=== PATIENT | female | born 1985 | race Caucasian/White ===

== ENCOUNTER 2021-01-14 15:45 | Inpatient (IN) | payer BC, SELFPAY ==
[2021-01-14] VITALS (14 sets, daily range): BP systolic 103–135; BP diastolic 61–85; PULSE 94–112; TEMP 36.4–36.9; BMI 38.0
[2021-01-14 16:41] LABS: Basophils Percent Auto 0.3 % (0.2-1.2); Eosinophils Percent Auto 0.4 % (0-4.4); Hematocrit 31.9 % (37.0-47.0); Hemoglobin 10.2 g/dL (12.0-15.0); Immature Granulocyte Absolute 0.08 K/mm3 (0.00-0.031); Immature Granulocyte Percent A 0.7 % (0-0.5); Lymphocytes Absolute Auto 2.13 K/mm3 (0.9-3.2); Lymphocytes Percent Auto 18.9 % (18.3-44.2); Mean Corpuscular Hemoglobin 25.3 pg (26-34); Mean Corpuscular Volume 79.2 fl (80-100); Mean Platelet Volume 10.1 fl (7.4-10.4); Monocytes Percent Auto 8.5 % (2.6-8.5); Neutrophils Percent Auto 71.2 % (45.5-73.1); Platelet Count Result 302 k/mm3 (150-375); Red Blood Count 4.03 M/mm3 (4.2-5.4); Red Cell Distribution Width 14.6 % (11.5-14.5); White Blood Count 11.3 K/mm3 (4.5-10.0)
[2021-01-14] MEDS: DINOPROSTONE 10 MG VAG INSERT VAGINAL (17:31)
--- NOTE | 2021-01-14 17:45 | LDADM ---
This patient, Evon Moody, was admitted to Labor/Delivery/Recovery 103 on 01/14/21 at 15:45. Plans for labor, pain management and were discussed with patient. Patient/family oriented to hospital policies and general routines including ID bracelet, bed and alarms, visiting hours, pain management, procedures, bathroom and other care routines, personal items, smoking policy, room service/diet and guest tray routines, infant security routines, and visiting hours. Patient/Family are encouraged to report perceived risks to care and to ask questions if they do not understand what they are told or what they should do. See OBIX for further documentation.
[2021-01-14] MEDS: LACTATED RINGERS 1,000 ML 125 ML IV CONT (20:49)
[2021-01-14] MEDS: fentaNYL CITRATE INJ (*CRX) 100 MCG/2 ML VIAL 50 MCG IV PUSH (22:37)
[2021-01-15] VITALS (221 sets, daily range): BP systolic 74–190; BP diastolic 35–157; PULSE 60–164; RESP 15; TEMP 35.9–37.7; O2SAT 94–100
--- NOTE | 2021-01-15 00:31 | P.PNAN_ITS ---
Anes - Eval Pre Procedure Procedure: Labor epidural Date/Time: 01/15/21 00:31 Surgeon: Tiara Preop Diagnosis: Abd pain with contractions Pre Op Diagnosis: IOL Patient Data Age: 35 Gender: F Height: 5 ft 6 in Weight: 106.8 kg Last Vital Signs Temp 98.5 F 01/14/21 22:45 Pulse 96 01/14/21 22:44 BP 121/61 01/14/21 22:44 Allergies Allergy/AdvReac Type Severity Reaction Status Date / Time codeine AdvReac Vomiting Verified 12/27/20 16:07 Home Medications Medication Instructions Recorded Confirmed Type PNV cmb#95-ferrous fumarate-FA 1 tablet PO DAILY 12/27/20 12/27/20 History [] lansoprazole [Prevacid] 30 mg PO DAILY 12/27/20 12/27/20 History Laboratory Tests 01/14/21 01/14/21 01/14/21 16:36 16:36 16:36 WBC 11.3 K/mm3 H K/mm3 (4.5-10.0) RBC 4.03 M/mm3 L M/mm3 (4.2-5.4) Hgb 10.2 g/dL L g/dL (12.0-15.0) Hct 31.9 % L % (37.0-47.0) MCV 79.2 fl L fl (80-100) MCH 25.3 pg L pg (26-34) MCHC 32.0 g/dl g/dl (32-36) RDW 14.6 % H % (11.5-14.5) Plt Count 302 k/mm3 k/mm3 (150-375) MPV 10.1 fl fl (7.4-10.4) Immature Gran % (Auto) 0.7 % H % (0-0.5) Neut % (Auto) 71.2 % % (45.5-73.1) Lymph % (Auto) 18.9 % % (18.3-44.2) [place] % (Auto) 8.5 % % (2.6-8.5) Eos % (Auto) 0.4 % % (0-4.4) Baso % (Auto) 0.3 % % (0.2-1.2) Lymph # (Auto) 2.13 K/mm3 K/mm3 (0.9-3.2) [place] # (Auto) 1.0 K/mm3 H K/mm3 (0.1-0.6) Eos # (Auto) 0.0 K/mm3 K/mm3 (0-0.3) Baso # (Auto) 0.0 K/mm3 K/mm3 (0.0-0.1) Abs Immat Gran (auto) 0.08 K/mm3 H K/mm3 (0.00-0.031) Absolute Neuts (auto) 8.0 K/mm3 H K/mm3 (1.3-6.7) Absolute Nucleated RBC 0.0 K/mm3 K/mm3 (0.0-0.012) Nucleated RBC % 0.0 % % (0.0-0.2) RPR Pending Blood Type B Positive Antibody Screen Negative Patient hx anesthesia problems: none Family hx anesthesia problems: none PMFSH Past Medical History Medical History Anxiety Obesity and not yet delivered Family History Family History Other No pertinent family history Social History Social History Smoking status: Never smoker Substance use: never Gender identity (if verbalized by the patient): Female Spiritual care concerns: No Exam Day of Procedure 01/15/21 00:31 Patient weight: obese Airway: Mallampati scale class III Neurological: alert and oriented
[2021-01-15] MEDS: LACTATED RINGERS 1,000 ML 125 ML IV CONT ×2 (01:05→04:22)
[2021-01-15] MEDS: OXYTOCIN 30 UNITS/NS 500 ML 30 UNITS/500 ML BAG 6 UNITS IV CONT (07:02)
--- NOTE | 2021-01-15 07:18 | P.HP_ITS ---
Obstetrics - Admit Note Admission Note: record reviewed. No pertinent additions to the history and/or any subsequent changes in the physical findings that are not consistent with the expected course of the were found. MIL, polyhydramnios, Both parents +CF carriers. EFW 89%, sve 3-4/80/-2, arom Large amount of clear odorl ess fluid Additions to the history and/or subsequent changes in the physical findings follow. None.
[2021-01-15 09:27] LABS: Rapid Plasma Reagin Non-Reactive (NonReactive)
[2021-01-15] MEDS: ONDANSETRON INJ 4 MG/2 ML VIAL IV PUSH (10:38)
[2021-01-15] MEDS: miSOPROStol 200 MCG TABLET 1000 MCG (16:50)
--- NOTE | 2021-01-15 16:58 | P.PCNOB_ITS ---
OB - Delivery Note Procedure Delivery date: 01/15/21 Procedure: vaginal delivery events: Polyhydramnios Intrapartal events: None Induction method: AROM, per pitocin protocol and per cervidil protocol Delivery monitor: external FHT, external uterine and internal uterine Route of delivery: Laceration Description: Labial (bilateral) Delivery repair: vicryl Specimen: Yes Quantitative Blood Loss (ml): 312 Anesthesia type: Epidural Disposition: floor [place] Baby Date of : 01/15/21 Time of : 16:30 Weeks of gestation at delivery: 39 gender: Female Weight (pounds): 8 Weight (ounces): 5 presentation: vertex position: Left Occiput Anterior Placenta delivery description: Spontaneous cord vessel description: 3 Vessels, Tight, Around Body x1 and Delayed Cord Clamping score one minute: 8 score five minutes: 9 Narrative: blood oozing from suture sight, vag packing placed, cytotec placed after fundus was boggy right after delivery, mother and baby skin to skin and in stable condition upon my departure
[2021-01-15] MEDS: OXYTOCIN 30 UNITS/NS 500 ML 30 UNITS/500 ML BAG 125 UNITS IV CONT (17:00)
[2021-01-15] MEDS: WITCH HAZEL 40 PADS 1 PAD TOPICAL (17:17)
[2021-01-15] MEDS: BENZOCAINE 20% AER SPR (*SP) 56 GM CAN 1 SPRAY TOPICAL (17:17)
[2021-01-15] MEDS: IBUPROFEN 600 MG TABLET PO (17:18)
--- NOTE | 2021-01-15 19:20 | OBPPTRN ---
Patient transferred to post room #291 via wheelchair - still down in nursery for bath. Support person present. Oriented to unit, room, information board, rooming in, admission packet and security measures. Patient verbalizes understanding.
[2021-01-16 04:15] VITALS: BP 122/69; PULSE 96; RESP 18; TEMP 36.9
[2021-01-16] MEDS: ACETAMINOPHEN 325 MG TABLET 650 MG PO ×2 (04:20→11:10)
[2021-01-16 06:01] LABS: Hematocrit 25.9 % (37.0-47.0); Hemoglobin 8.2 g/dL (12.0-15.0)
[2021-01-16 07:50] VITALS: BP 119/64; PULSE 88; RESP 16; TEMP 36.7; O2SAT 100
--- NOTE | 2021-01-16 07:59 | PM.OBPNVD ---
OB - PN: Subj Subjective Date/time seen: 01/16/21 07:59 Patient comments: no complaints baby status: doing well OB - PN: Obj Data Labs CBC & Chem 7: 01/16/21 04:17 Labs: Laboratory Results - last 24 hr 01/14/21 01/16/21 16:36 04:17 Hgb 8.2 L Hct 25.9 L RPR Non-reactive OB - PN A/P Plan day: 1 Plan: routine care Time Spent With Patient Time: Total time spent is greater than 50% in coordination of care (as documented) at patient's floor/unit and/or counseling patient: Time with patient: less than 15 minutes Review of Systems Review of Systems: All systems reviewed & are unremarkable except as noted in HPI and below Exam Narrative: Exam Narrative: Fundus firm and vaginal flow controlled. No lower ext redness, warmth, or edema. Negative homans. Const: General: comfortable Chest: Breast/axilla inspection: normal inspection of the breasts Resp: Effort & Inspection: normal respiratory effort Cardio: Rate: regular rate GI: GI Palp: Yes Soft to palpation Psych: Appearance: grossly normal Affect: normal affect Attitude: cooperative Thought content: Yes Normal thought content present Judgement: Good judgement present (Psych)
[2021-01-16] MEDS: DOCUSATE SODIUM 100 MG CAPSULE PO ×2 (08:52→16:02)
[2021-01-16] MEDS: IBUPROFEN 600 MG TABLET PO ×3 (08:52→21:33)
[2021-01-16] MEDS: POLYSACCHARIDE IRON COMPLEX 150 MG CAPSULE PO ×2 (08:52→16:03)
[2021-01-16] MEDS: MULTIVIT/MIN/PREN/FOL AC/IRON TABLET 1 TAB PO (08:52)
--- NOTE | 2021-01-16 08:57 | WPDANLDPN2 ---
Anes-Prog Note L&D Date/Time: 01/16/21 08:57 Comfortable throughout: labor and delivery Neuraxial method: epidural Epidural/Spinal procedure site: clean & non-tender Neuro status: Neuro function grossly intact. Cardiovascular status: normal Respiratory status: normal Airway patency: baseline Mental status: baseline Post-Op hydration status: normal Vital Signs: Last Vital Signs Temp 36.9 C 01/16/21 04:15 Pulse 96 01/16/21 04:15 Resp 18 01/16/21 04:15 BP 122/69 01/16/21 04:15 Pulse Ox 99 01/15/21 14:57 Pain score (VAS): 3 I/O: Intake & Output 01/15/21 01/16/21 01/16/21 23:59 07:59 15:59 Intake Total 1500 Output Total 535 Balance 965 Post-procedural complaints: none Patient feedback: Patient satisfied with anesthetic care.
--- NOTE | 2021-01-16 09:50 | PC.NURSE ---
Mother called out for assist with feeding. Mother reports infant has been sleepy with some difficulties/discomfort with latching. Reviewed feeding cues, frequencies, duration of feedings, feeding elimination flow sheet, and signs of adequate intake. Demonstrated stimulation techniques to wake infant for feeding. Assisted with infant to breast. Reviewed positioning/alignment in football, holding breast in ?C? hold and guided asymmetrical latch on. Several attempts before infant able to latch correctly. Infant nursed eagerly, with steady draws and frequent swallowing noted. Reviewed signs of a correct latch, effective nursing and suck swallow ratio. was able to maintain latch without discomfort to mother. would slip to shallow latch, mother reports tenderness. Demonstrated how to adjust latch more deeply while feeding. Mother reports she can feel change in latch and has no tenderness. Suggested mother stimulate while feeding to increase stimulate, increase intake and to assist with maintaining deep latch. Nipple care reviewed of lanolin after feedings, warm compresses as needed. Instructed mother to call out for RN assistance if she is unable to latch infant for feeding or she has discomfort with nursing. Instructed feeding should be initiated three hours from start of last feeding or if feeding cues are noted before. Mother voiced understanding of information shared.
[2021-01-16 12:42] VITALS: BP 108/55; PULSE 92; RESP 16; TEMP 36.3; O2SAT 98
[2021-01-16 19:00] VITALS: BP 119/67; PULSE 98; RESP 18; RESP 20; TEMP 36.8; O2SAT 98
[2021-01-17] MEDS: IBUPROFEN 600 MG TABLET PO ×2 (05:33→11:36)
--- NOTE | 2021-01-17 07:00 | PC.NURSE ---
PT introductions made and plan of care discussed per post , pain management, breast feeding, daily care activities and pending discharge to home. PT will received discharge and education instructions per one to one discussion, mom baby care guide and demonstration. PT and spouse both recipients of such instructions and no barriers to learning identified. PT verbalized understanding of such care.
--- NOTE | 2021-01-17 07:17 | PM.OBPNVD ---
OB - PN: Subj Subjective Date/time seen: 01/17/21 07:17 Patient comments: no complaints baby status: doing well OB - PN: Obj Data Labs CBC & Chem 7: 01/16/21 04:17 OB - PN A/P Plan day: 2 Plan: routine care and discharge home Time Spent With Patient Time: Total time spent is greater than 50% in coordination of care (as documented) at patient's floor/unit and/or counseling patient: Exam Const: General: cooperative Nutritional Appearance: average body habitus Psych: Affect: normal affect Attitude: cooperative Thought process: Normal thought process present Thought content: Yes Normal thought content present Insight: Good insight present (Psych) Judgement: Good judgement present (Psych)
--- NOTE | 2021-01-17 08:30 | PC.NURSE ---
Mother has decided to formula feed. Reviewed engorgement/relief. Mother has no further questions at this time.
[2021-01-17 09:00] VITALS: BP 93/58; PULSE 99; RESP 16; TEMP 36.6; O2SAT 98
[2021-01-17] MEDS: ACETAMINOPHEN 325 MG TABLET 650 MG PO (11:26)
[2021-01-17] MEDS: POLYSACCHARIDE IRON COMPLEX 150 MG CAPSULE PO (11:27)
[2021-01-17] MEDS: DOCUSATE SODIUM 100 MG CAPSULE PO (11:27)
[2021-01-17] MEDS: MULTIVIT/MIN/PREN/FOL AC/IRON TABLET 1 TAB PO (11:27)
--- NOTE | 2021-01-17 14:30 | PC.NURSE ---
PT received discharge instructions per protocol and verbalized understanding
--- NOTE | 2021-01-17 15:00 | PC.NURSE ---
PT discharged to home ambulatory accompanied by spouse and and taken to waiting car. Follow up appts confirmed
[2021-01-18 09:49] VITALS: BP 136/80; PULSE 85; RESP 20; TEMP 37; O2SAT 100
--- NOTE | 2021-01-19 07:47 | PM.OBDSVD ---
DS: Admitting Diagnosis Admitting Diagnosis Admitting Diagnosis: [facility] OB - DS: Summary OB Procedures : None OB Procedures Intrapartum: Spontaneous Vag Delivery OB Procedures: : None Time Spent with Patient Time attestation: Total time spent providing and/or coordinating discharge services: DS: Data Data Completed and Pending Pending studies at discharge: Pending at discharge 01/15/21 17:31 Surgical [PTH] Routine Discharge Plan Discharge Attending physician on discharge: Katy Curry Consulting providers: Linette Menjivar ; Shirin Watts Discharging Clinician: Linette Menjivar Patient Disposition: Home, Self-Care Activity: pelvic rest Diet: regular Discharge Instructions: Education: Mom and Baby Guide Given to: Mother Follow-Up: Call your delivering provider's office for an appointment to be seen in: 4 Weeks Mom and baby should come to the [facility] for the follow-up appointment. Appointment Date/Time: January 18, 2021 at 9:00 am What to expect at your follow-up visit: Blood Pressure Check Call [phone] if you are unable to keep your appointment time. BREAST CARE: * Wear a snug supportive bra. * For engorgement discomfort: Breast Feeding: * Apply warm moist washcloths * Express milk as needed to relieve engorgement * Wear loose clothing Bottle Feeding: * May apply ice packs * For sore nipples: * Identify correct latch-on * Apply warm moist washcloths before and after nursing * Air dry nipples after nursing * May apply Lansinoh cream to nipples PERINEAL CARE: * Until bleeding stops, use your dandre bottle after urinating * Change your pad frequently throughout the day * You may take sitz baths several times a day (fill your bathtub with warm water and soak for 20 minutes.) Do NOT bathe in the water * No tub baths until seen by your physician - You may shower ACTIVITY: * Rest as much as possible. * Do not exercise or lift anything heavier than your baby (such as laundry or other children.) * Avoid stairs or driving as much as possible. * Do not put anything into the vagina. No douching, tampons, or sexual activity until seen by physician. NOTIFY PHYSICIAN IF YOU HAVE ANY QUESTIONS OR IF ANY OF THE FOLLOWING SYMPTOMS OCCUR: * If your perineum becomes red, swollen, or more painful than what you have experienced in the hospital. * If your vaginal bleeding becomes foul smelling. * If your vaginal bleeding becomes more heavy than a period or if your bleeding changes from pink to bright red. However, you may pass an occasional walnut-sized clot once or twice for the first week . * If you experience a sharp, shooting pain in you calves. * If you discover a hard, reddened area on your breast or if you experience flu-like symptoms. * If you have a fever of 100.4 or greater DIET: * Eat regular, well-balanced meals. * Drink plenty of fluids daily. If , drink to thirst. Patient Instructions: Antibiotic Form Stand Alone Forms: General Discharge Information Follow-up/Referrals: Linette Menjivar CNM [Certified Nurse Urology Physician Assistant] - Discharge Medications: Continued lansoprazole [Prevacid] 30 mg Capsule,Delayed Release(Dr/Ec) 30 mg PO DAILY RF: 0 PNV cmb#95-ferrous fumarate-FA [] 28 mg iron- 800 mcg Tablet 1 tablet PO DAILY RF: 0 Date of admission: 01/14/21 15:45 Primary Care Provider: PHYSICIAN NOT ON STAFF,NONSTAFF Admitting Provider: Katy Curry Attending physician on admission: Katy Curry Condition: Stable
== END 2021-01-17 15:00 | disposition home or self-care (01) | DRG 807 ==
LOC: ANHLDR 15:47 → ANHOB2 01-15 20:01
PROVIDERS: Advanced Practice Midwife; Admitting Provider Obstetrics & Gynecology; Visit Provider Obstetrics & Gynecology
DX: O40.3XX0 Polyhydramnios, third trimester, not applicable or unspecified (principal); Z37.0 Single live birth; Z3A.39 39 weeks gestation of pregnancy; O69.2XX0 Labor and delivery complicated by other cord entanglement, with compression, not applicable or unspecified; O70.0 First degree perineal laceration during delivery; K21.9 Gastro-esophageal reflux disease without esophagitis; O99.62 Diseases of the digestive system complicating childbirth; O99.344 Other mental disorders complicating childbirth; F41.9 Anxiety disorder, unspecified; O99.02 Anemia complicating childbirth; D64.9 Anemia, unspecified
CPT/HCPCS: 36415; 85014; 85018; 85025; 86592; 86850; 86900; 86901; 88307; A9270; J0131; J2405; J2590; J3010; J7120

== ENCOUNTER 2023-02-14 08:39 | Outpatient (CLI) | payer OTHER, SELFPAY | END 2023-02-14 08:40 | disposition home or self-care (01) | LOC: ANHLAB 08:44 | PROVIDERS: PCP Family Medicine; Visit Provider Advanced Practice Midwife | DX: N91.2 Amenorrhea, unspecified (principal) | CPT/HCPCS: 36415; 84702 ==

== ENCOUNTER 2023-04-16 12:13 | Outpatient (CLI) | payer OTHER, SELFPAY ==
--- NOTE | ~2023-04-16 | MMUS_ITS ---
EXAMINATION: MM diagnostic rey BI w radha, US breast LT limited HISTORY: Upper outer quadrant left breast lump TECHNIQUE: Bilateral full field ML, MLO and CC and spot left MLO and CC 3-D tomosynthesis images were performed and synthetic 2-D images were generated. CAD analysis was submitted and interpreted. High resolution upper outer quadrant left breast ultrasound was performed. COMPARISON: None BREAST PARENCHYMAL COMPOSITION: The breasts are extremely dense, which lowers the sensitivity of mamm ography. FINDINGS: MAMMOGRAPHIC FINDINGS: No suspicious mass or architectural distortion, malignant calcification, skin thickening or retractio n is detected. ULTRASOUND: 12:00 1 cm from nipple: Circumscribed hypoechoic solid lesion measuring approximately 1.4 x 1.3 x 1 c m, likely a benign fibroadenoma. No suspicious mass or shadowing is detected in the upper-outer quadrant of left breast otherwise. IMPRESSION: 1. Probable benign fibroadenoma, upper outer quadrant of left breast, not corresponding to the area o f clinical complaint; no mammographic or sonographic evidence of malignancy is detected 2. Routine mammographic screening beginning at age 40 is recommended BI-RADS Category 2: Benign finding(s). Reviewed, dictated and finalized at location A. IMPRESSION: 1. Probable benign fibroadenoma, upper outer quadrant of left breast, not corre sponding to the area of clinical complaint; no mammographic or sonographic evid ence of malignancy is detected 2. Routine mammographic screening beginning at age 40 is recommended BI-RADS Category 2: Benign finding(s).
== END 2023-04-16 12:14 | disposition home or self-care (01) ==
LOC: ANHIMG 12:15
PROVIDERS: PCP Family Medicine; Visit Provider Advanced Practice Midwife
DX: N63.21 Unspecified lump in the left breast, upper outer quadrant (principal)
CPT/HCPCS: 76642; 77062; 77066; G0279

== ENCOUNTER 2024-08-11 08:47 | Emergency (ER) | payer OTHER, SELFPAY ==
[2024-08-11 09:00] VITALS: BP 138/90; PULSE 104; RESP 16; TEMP 36.8; O2SAT 99
--- NOTE | 2024-08-11 09:38 | ED_ITS ---
HPI - URI/Sore Throat General Chief Complaint: Upper Respiratory Infection Stated Complaint: Sinus Infection Symptoms Time Seen by Provider: 08/11/24 09:17 Source: patient and RN notes reviewed Mode of arrival: ambulatory Limitations: no limitations History of Present Illness HPI Narrative: Patient presents today complaining of 6 day history of sore throat, nasal congestion, cough, chest congestion. Denies shortness of breath or fever. States she feels some slight wheezing when she lays down in bed. Prior to onset of symptoms patient was at a convention with lots of people. She has tried Robitussin, Mucinex, and ibuprofen with mild relief. No history of asthma or COPD. She is a nonsmoker. Related Data Home Medications ?Medication ?Instructions ?Recorded ?Confirmed ?Last Taken ?Type lansoprazole 30 mg capsule,delayed 30 mg PO DAILY 12/27/20 12/27/20 Unknown History release (Prevacid) Allergies Allergy/AdvReac Type Severity Reaction Status Date / Time codeine AdvReac Vomiting Verified 08/11/24 09:18 Review of Systems Review of Systems: CONSTITUTIONAL: Denies body aches, fever, chills, or sweats. EYES: Denies visual changes, redness, or discharge. ENT: Denies rhinorrhea, or otalgia.+ congestion, sore throat CARDIOVASCULAR: Denies chest pain, palpitations, or edema. RESPIRATORY: Denies dyspnea.+ cough, chest congestion GASTROINTESTINAL: Denies abdominal pain, nausea, vomiting, or diarrhea. GENITOURINARY: Denies dysuria or hematuria. SKIN: Denies rash, itching, or wounds. MUSCULOSKELETAL: Denies back pain, joint pain, or myalgia. NEUROLOGIC: Denies headache, numbness, tingling, or weakness. PSYCH: Denies depression or anxiety. [facility] Past Medical History Medical History Obesity and not yet delivered Anxiety Family History Family History Other No pertinent family history Social History Social History Smoking status: Never smoker Substance use: never Gender identity (if verbalized by the patient): Female Spiritual care concerns: No Comments At time of signature, I have reviewed and agree with nursing past medical, surgical, social and family history unless otherwise noted. Please see nursing chart for further information. There is no relevant family history pertinent to the presenting complaint Exam Narrative: GENERAL: Mildly ill-appearing, well-nourished, and in no acute distress. HEAD: Normocephalic, atraumatic. EYES: EOMI. No redness or drainage. Conjunctivae normal. ENT: Mucous membranes pink and moist. Nares mildly congested. No rhinorrhea. TMs normal bilaterally. Throat normal. Uvula midline. NECK: Normal AROM. Supple. No lymphadenopathy. CHEST: No respiratory distress. Clear to auscultation. HEART: Regular rate and rhythm. No murmur appreciated. EXTREMITIES: Normal range of motion. No edema. SKIN: Warm, dry, no rash. Capillary refill normal. Normal skin turgor. NEURO: No focal deficits. Alert and oriented x3. Gait steady. PSYCH: Normal affect. No signs of depression or anxiety. Course Course Level of Care: Express Care Visit Vital Signs Vital signs: Vital Signs Temperature 98.2 F 08/11/24 09:00 Pulse Rate 104 H 08/11/24 09:00 Respiratory Rate 16 08/11/24 09:00 Blood Pressure 138/90 08/11/24 09:00 Pulse Oximetry 99 08/11/24 09:00 Temperature 98.2 F 08/11/24 09:00 Pulse Rate 104 H 08/11/24 09:00 Respiratory Rate 16 08/11/24 09:00 Blood Pressure 138/90 08/11/24 09:00 Pulse Oximetry 99 08/11/24 09:00 Oxygen Delivery Room Air 08/11/24 09:20 Reviewed MDM - URI/Sore Throat MDM Narrative Medical decision making narrative: Symptoms likely viral in etiology. Discussed [id number] medication use and duration of illness. Patient will be treated for her symptoms with prednisone and Tessalon Perles. Anticipatory guidance given. ED precautions given. Differential Diagnosis Differential diagnosis: Likely upper respiratory infection, sinusitis, viral infection and bronchitis Critical Care Time Critical Care Time Critical Care Time: No Discharge Plan Discharge Clinical Impression: Upper respiratory infection Qualifiers: URI type: unspecified URI Qualified Code(s): J06.9 - Acute upper respiratory infection, unspecified Patient Disposition: Home, Self-Care Condition: Stable Instructions: Upper Respiratory Infection (DC) Additional Instructions: Your symptoms are likely due to a viral illness, which is not treated with antibiotics. Virus symptoms can last for up to 7-14 days. Take Tylenol or ibuprofen for pain or fever. Consider starting Sudafed and Flonase. Take the prednisone and Tessalon Perles as prescribed. Rest and stay hydrated. Follow up with your PCP in 7 days if symptoms are not improving. Go to the ER immediately if you develop shortness of breath, difficulty swallowing, or any other concerning symptoms. Your blood pressure was elevated above 120/80 today at Urgent Care. This puts you above the threshold for follow up. Please schedule a followup visit with your personal physician as soon as possible, for further evaluation and treatment. Even blood pressure exceeding 120/80 may indicate pre-hypertension. Patient Language: Faroese Prescriptions: New benzonatate 200 mg capsule 200 mg PO TID PRN (Reason: cough) Qty: 20 0RF prednisone 20 mg tablet 40 mg PO DAILY 5 Days Qty: 10 0RF No Action lansoprazole [Prevacid] 30 mg Capsule,Delayed Release(Dr/Ec) 30 mg PO DAILY Follow-up/Referrals: PHYSICIAN,[employer]EL[employer] [Primary Care Provider] - Time of Disposition: 09:42
== END 2024-08-11 09:44 | disposition home or self-care (01) ==
PROVIDERS: Emergency Provider Nurse Practitioner
DX: J06.9 Acute upper respiratory infection, unspecified (principal); E66.9 Obesity, unspecified; Z68.35 Body mass index [BMI] 35.0-35.9, adult
CPT/HCPCS: 99213; G0463

== ENCOUNTER 2024-10-18 03:22 | Day surgery (SDC) | payer OTHER, SELFPAY ==
[2024-10-11 10:13] VITALS: BMI 35.6
--- NOTE | 2024-10-11 10:21 | PC.NURSE ---
Report to the Outpatient Waiting Room, entrance under the green pavilion located off [facility], at time _1000_ on date _[id number]_. Planned Procedure Time: _1200_.? Time changes happen often and if your time is changed the preop area will call you the afternoon before. - You and your visitor will be asked to self-screen and do not enter if you have any COVID symptoms. Please call surgeon if you need to reschedule. - A mask is optional within the hospital at this time. Patients may have clear liquids (water, carbonated beverages, clear teas, apple juice) until 3 hours prior to surgery with a maximum of 20 ounces. - No food from midnight until time of surgery and no smoking, or chewing tobacco (or any form of nicotine). No chewing gum, candy or mints. Take only the following medications with a SIP of water on the morning of surgery: __Thyroid medication and control medicine. (Patient to bring these day of surgery so they can be added to med list.)____ DO NOT STOP ANY OF YOUR OTHER PRESCRIPTION MEDICATIONS PRIOR TO SURGERY EXCEPT THE FOLLOWING Hold all vitamins and supplements for 3 days per anesthesiologist. Medications to discontinue per physician Date to take last dose Please no make-up, nail sami, hairspray, perfume, deodorant, or body powder the day of surgery.? No jewelry (including any body piercings) or valuables the day of surgery, leave them at home.? Please take a shower or bath the night before, or the morning of, surgery with an antibacterial soap.? Wear comfortable, loose fitting clothing.? - Jewelry must be removed prior to entering the operating room.? Rings and piercings that are not removed may be cut off. - The hospital will not accept responsibility for valuables.? - Please leave all valuables, including medications, at home the day of surgery. If you are going home after surgery, a licensed race car driver must drive you home.? - NO public transportation without another adult if you receive anesthesia. - We recommend that an adult stay with you for 24 hours following discharge. - We also recommend that you do not drive, make important decision, drink alcoholic beverages, or take any drugs that were not prescribed by your health care provider for at least 24 hours after your discharge time. Follow any additional instructions given to you from your surgeon. Telephone instructions given to __Heather__and asked if any additional questions and then verbalized understanding. Patient advised to call surgeon office or pre surgery nurse liaison [phone] if any additional questions.
[2024-10-18] VITALS (12 sets, daily range): BP systolic 104–140; BP diastolic 53–76; PULSE 78–97; RESP 11–16; TEMP 36.2–37.2; O2SAT 94–100
--- OUTSIDE RECORDS SUMMARY | 2024-10-18 03:25 | XMS_ITS | Data Portability ---
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 Patient will come back in a year unless there are new symptoms. Take Calcium with Vitamin D 1200mg daily if not receiving in daily diet. It is strongly advised to have an annual flu shot and up can obtain at most pharmacies. If you have not had a TDap shot in the last 10 years you should obtain one as well. Discussed with patient & provided with information regarding Gardisil vaccine to prevent the 4 strains for HPV that cause cervical cancer if under age 26. Encourage safe sexual practices, to use condoms and limit partners if not already in a monogamous relationship. Do monthly self breast exams. Have mammogram yearly or every other year depending on family history. BRCA testing is now available for patients with strong genetic history of female cancer. If interested contact the office. Engage in daily exercise of low impact aerobic exercise 45-60 minutes 4-5 times weekly. Avoid tobacco and illicit drugs as well as using moderation with alcohol intake less than 1-2 8 oz beverages daily. This lifestyle behavior pattern will lead to less health conditions and longer life span. If BMI greater than 25 weight watchers or dietary consult advised. Patient received above instructions, and questions have been answered. If you have any questions please call or respond to this email. Patient was made aware of the patient portal and may obtain a paper copy of today's plan if desired. pap collected plan xanax for travel ellie sequeira Not available 05/12/2024 11:56:27 06/23/2024 06/23/2024 await pap results, plan consult for hysterectomy wants female md shook Not available 06/23/2024 11:38:12 Plan of Treatment Reminders Order Date Submit Date Provider Last Modified By Organization Details Last Modified Time Details Appointments SURG Total Lap Hyst 2024 12:00P M JEREMIAS OCX MD Not available Not available Not available SURG POST OP 2024 04:00P M JEREMIAS COX MD Not available Not available Not available SURG POST OP 2024 04:00P M JEREMIAS COX MD Not available Not available Not available Lab test, urine 2023 024 [address], [address], [place], [address], 06/23/2024 11:06:57 Referral None recorded. Procedures None recorded. Surgeries None recorded. Imaging US, obstetric , transvagi nal 2022 023 [email or web address] [place], [address], [address], [place], [address], 03/06/2023 20:42:20 Medication Orders clindamyc in HCl 300 mg capsule 2023 024 [facility] [address] [place], [address], 07/21/2024 11:37:24 clindamyc in 1 % topical gel 2023 024 [facility] [address] [place], [address], 06/23/2024 11:29:41 Patient TargetsNo targets recorded. Patient InstructionsNo instructions recorded. Reason for Referral None Reported. Results Created Date Observation Date Name Description Value Unit Range Abnormal Flag Note LastModifiedBy Organization Detail LastModifiedTime 02/13/20 23 02/12/2023 CBC W/DIF F WBC 10.6 10'3/ uL 3.6-10 .2 high Not Available [facility] (Lab) [address], [place], [address], 02/13/2023 11:18:56 02/13/20 23 02/12/2023 CBC W/DIF F RBC 5.11 10'6/ uL (based on docume nted legal sex) 4.10-5 .30 Not Available [facility] (Lab) [address], [place], [address], 02/13/2023 11:18:56 02/13/20 23 02/12/2023 CBC W/DIF F HGB 13.6 g/dL (based on docume nted legal sex) 11.9-1 5.8 Not Available [facility] (Lab) [address], [place], [address], 02/13/2023 11:18:56 02/13/20 23 02/12/2023 CBC W/DIF F HCT 43.5 % (based on docume nted legal sex) 37.4-4 8.3 Not Available [facility] (Lab) [address], [place], [address], 02/13/2023 11:18:56 02/13/20 23 02/12/2023 CBC W/DIF F MCV 85.1 fL 82.0-9 9.0 Not Available [facility] (Lab) [address], [place], [address], 02/13/2023 11:18:56 02/13/20 23 02/12/2023 CBC W/DIF F MCH 26.6 pg 27.0-3 3.0 low Not Available [facility] (Lab) [address], [place], [address], 02/13/2023 11:18:56 02/13/20 23 02/12/2023 CBC W/DIF F MCHC 31.3 g/dL 32.0-3 6.0 low Not Available [facility] (Lab) [address] [place], [address], 02/13/2023 11:18:56 02/13/20 23 02/12/2023 CBC W/DIF F RDW 13.9 % 11.0-1 5.0 Not Available [facility] (Lab) [address], [place], [address], 02/13/2023 11:18:56 02/13/20 23 02/12/2023 CBC W/DIF F plt 368 10'3/ uL 150-45 0 Not Available [facility] (Lab) [address], [place], [address], 02/13/2023 11:18:56 02/13/20 23 02/12/2023 CBC W/DIF F MPV 10.5 fL 9.8-12 .7 Not Available [facility] (Lab) [address], [place], [address], 02/13/2023 11:18:56 02/13/20 23 02/12/2023 CBC W/DIF F NRBC's 0.0 % 0 Not Available [facility] (Lab) [address], [place], [address], 02/13/2023 11:18:56 02/13/20 23 02/12/2023 CBC W/DIF F absolute NRBCs 0.0 10'3/ uL 0 Not Available [facility] (Lab) [address], [place], [address], 02/13/2023 11:18:56 02/13/20 23 02/12/2023 CBC W/DIF F neutrophils 65.9 % 37.0-7 2.0 Not Available [facility] (Lab) [address], [place], [address], 02/13/2023 11:18:56 02/13/20 23 02/12/2023 CBC W/DIF F lymphocytes 26.2 % 16.0-4 8.0 Not Available [facility] (Lab) [address] [facility], [place], [address], 02/13/2023 11:18:56 02/13/20 23 02/12/2023 CBC W/DIF F monocytes 6.5 % 4.0-14 .0 Not Available [facility] (Lab) [address] [facility], [place], [address], 02/13/2023 11:18:56 02/13/20 23 02/12/2023 CBC W/DIF F eosinophils 0.7 % 0.0-9. 0 Not Available [facility] (Lab) [address] [facility], [place], [address], 02/13/2023 11:18:56 02/13/20 23 02/12/2023 CBC W/DIF F basophils 0.4 % 0.0-2. 0 Not Available [facility] (Lab) [address] [facility], [place], [address], 02/13/2023 11:18:56 02/13/20 23 02/12/2023 CBC W/DIF F immature granulocytes 0.3 % no define d refere nce range Not Available [facility] (Lab) [address] [facility], [place], [address], 02/13/2023 11:18:56 02/13/20 23 02/12/2023 CBC W/DIF F absolute neutrophils 7.0 10'3/ uL 1.1-6. 0 high Not Available [facility] (Lab) [address] [facility], [place], [address], 02/13/2023 11:18:56 02/13/20 23 02/12/2023 CBC W/DIF F absolute lymphocytes 2.8 10'3/ uL 0.7-3. 4 Not Available [facility] (Lab) [address] [place], [address], 02/13/2023 11:18:56 02/13/20 23 02/12/2023 CBC W/DIF F absolute monocytes 0.7 10'3/ uL 0.3-1. 0 Not Available [facility] (Lab) [address] [facility], [place], [address], 02/13/2023 11:18:56 02/13/20 23 02/12/2023 CBC W/DIF F absolute eosinophils 0.1 10'3/ uL 0.0-0. 6 Not Available [facility] (Lab) [address] [facility], [place], [address], 02/13/2023 11:18:56 02/13/20 23 02/12/2023 CBC W/DIF F absolute basophils 0.0 10'3/ uL 0.0-0. 1 Not Available [facility] (Lab) [address] [facility], [place], [address], 02/13/2023 11:18:56 02/13/20 23 02/12/2023 CBC W/DIF F absolute immature granulocytes 0.0 10'3/ uL 0.00-0 .10 2022 1:25 AM: P indic ates parti al resul ts on a panel have been relea sed. Addit ional resul ts will follo w. 2022 1:26 AM: This resul t has been final verif ied. No addit ional or luna ed resul ts are expec tiffanie. Not Available [facility] (Lab) [address] [facility], [place], [address], 02/13/2023 11:18:56 02/13/20 23 02/12/2023 HEMOG LOBIN A1C hemoglobin A1C 5.2 % 0-5.6 The Ameri can [employer] kerm[facility] [employer] iatio n recom mends that a prima ry goal of thera py tiffani d be a HBA1C of < 7% and that physi cians lindseyul d reeva luate the treat ment regim en in patie nts with HBA1C value s consi stent ly > 8%. <5.7% Mirella l 5.7 - 6.4% Incre ased risk for diabe kermit >=6.5 % Diagn ostic of diabe kermit <7.0% Goal of thera py >8.0% Actio n sugge sted Not Available [facility] (Lab) [address] [facility], [place], [address], 02/13/2023 11:18:57 02/13/20 23 02/12/2023 TYPE/ RH/SC REEN ABO/Rh type B POS Not Available [facility] (Lab) [address] [facility], [place], [address], 02/13/2023 11:18:57 02/13/20 23 02/12/2023 TYPE/ RH/SC REEN antibody screen NEG Not Available [facility] (Lab) [address] [facility], [place], [address], 02/13/2023 11:18:57 02/13/20 23 02/12/2023 TYPE/ RH/SC REEN exp date 2022 23:59 Not Available [facility] (Lab) [address] [facility], [place], [address], 02/13/2023 11:18:57 02/13/20 23 02/12/2023 HEPAT ITIS B SURFA CE ANTIG EN hepatitis B surface antigen Non-re active non-re active This assay was perfo rmed using [employer] n reage nts and test kits. Value s obtai mally with other assay metho ds or kits canno t be used inter luna eably . Not Available [facility] (Lab) [address] [facility], [place], [address], 02/13/2023 11:18:58 02/13/20 23 02/12/2023 HIV 1/2 ANTIG EN/AN TIBOD Y, REFLE X CONFI RMATI ON HIV antigen/anti body Nonrea ctive nonrea ctive HIV-1 antig en and HIV-1 /HIV- 2 antib odies were not detec tiffanie. No labor atory evide nce of HIV infec tion. Not Available [facility] (Lab) [address] [facility], [place], [address], 02/13/2023 11:18:59 02/13/20 23 02/12/2023 HEPAT ITIS C ANTIB GREGORY SCREE N, REFLE X TO CONFI RMATI ON hepatitis C antibody Non-re active non-re active Antib odies to HCV Not Detec tiffanie, does not exclu de the possi bilit y of expos ure to HCV. Not Available [facility] (Lab) [address] [facility], [place], [address], 02/13/2023 11:19:00 02/13/20 23 02/12/2023 TSH, REFLE X FREE T4 TSH 1.84 uIU/m L 0.30-5 .33 Not Available [facility] (Lab) [address] [facility], [place], [address], 02/13/2023 11:19:00 02/13/20 23 02/12/2023 RUBEL LA IGG ANTIB GREGORY, QUANT rubella antibodies, IgG Reacti ve reacti ve Not Available [facility] (Lab) [address] [facility], [place], [address], 02/13/2023 11:19:01 02/13/20 23 02/12/2023 RUBEL LA IGG ANTIB GREGORY, QUANT rubella antibodies, IgG quant 15.9 IU/mL >=10 Non-r eacti ve (Non- Immun e) <10 IU/mL React valeria (Immu ne) > or = 10 IU/mL Not Available [facility] (Lab) [address] [facility], [place], [address], 02/13/2023 11:19:01 02/13/20 23 02/12/2023 RPR SCREE N/REF ANDRY TITER /FTA RPR screen Nonrea ctive nonrea ctive Not Available [facility] (Lab) [address] [place], [address], 02/13/2023 11:19:02 02/13/20 23 02/12/2023 pregn maxi test, urine HCG positi ve Not Available [address], [place], [address], 02/12/2023 15:59:17 03/06/20 23 03/06/[facility] ITATI [facility]-HCG [address]. 0 mIU/m L This assay was perfo rmed using [employer] reage nts and test kits. Value s obtai mally with other assay metho ds or kits canno t be used inter luna eably . Refer ence Range s: Non-p regna nt, preme nopau fátima women : 0.0-5 .3 mIU/m L Postm enopa usal women : 0.0-7 .0 mIU/m L Mirella l Pregn maxi: Gesta stephanie l Age bHCG Conc. - mIU/m L 3 Weeks 5.8 - 71.7 4 Weeks 9.5 - 750 5 Weeks 217-7 138 6 Weeks 158 - 31,79 5 7 Weeks 3,697 - 162,5 63 8 Weeks 32,06 5 - 149,5 71 9 Weeks 63,80 3 - 151,4 10 10 Weeks 46,50 9 - 186,9 77 12 Weeks 27,83 2 - 210,6 12 14 Weeks 13,95 0 - 62,53 0 15 Weeks 12,03 9 - 70,97 1 16 Weeks 9,040 - 56,45 1 17 Weeks 8,175 - 55,86 8 18 Weeks 8,099 - 58,17 6 Not Available [facility] (Lab) [address] [facility], [place], [address], 03/07/2023 05:56:20 03/10/20 23 03/10/2023 CG, QUANT ITATI VE B-HCG [address]44[address]. 0 mIU/m L This assay was perfo rmed using [employer] reage nts and test kits. Value s obtai mally with other assay metho ds or kits canno t be used inter luna eably . Refer ence Range s: Non-p regna nt, preme nopau fátima women : 0.0-5 .3 mIU/m L Postm enopa usal women : 0.0-7 .0 mIU/m L Mirella l Pregn maxi: Gesta stephanie l Age bHCG Conc. - mIU/m L 3 Weeks 5.8 - 71.7 4 Weeks 9.5 - 750 5 Weeks 217-7 138 6 Weeks 158 - 31,79 5 7 Weeks 3,697 - 162,5 63 8 Weeks 32,06 5 - 149,5 71 9 Weeks 63,80 3 - 151,4 10 10 Weeks 46,50 9 - 186,9 77 12 Weeks 27,83 2 - 210,6 12 14 Weeks 13,95 0 - 62,53 0 15 Weeks 12,03 9 - 70,97 1 16 Weeks 9,040 - 56,45 1 17 Weeks 8,175 - 55,86 8 18 Weeks 8,099 - 58,17 6 Not Available [facility] (Lab) [address] [facility], [place], [address], 03/11/2023 03:44:03 03/19/20 23 03/19/2023 [facility] QUANT ITATI VE B-HCG 6030.0 mIU/m L This assay was perfo rmed using [employer] reage nts and test kits. Value s obtai mally with other assay metho ds or kits canno t be used inter luna eably . Refer ence Range s: Non-p regna nt, preme nopau fátima women : 0.0-5 .3 mIU/m L Postm enopa usal women : 0.0-7 .0 mIU/m L Mirella l Pregn maxi: Gesta stephanie l Age bHCG Conc. - mIU/m L 3 Weeks 5.8 - 71.7 4 Weeks 9.5 - 750 5 Weeks 217-7 138 6 Weeks 158 - 31,79 5 7 Weeks 3,697 - 162,5 63 8 Weeks 32,06 5 - 149,5 71 9 Weeks 63,80 3 - 151,4 10 10 Weeks 46,50 9 - 186,9 77 12 Weeks 27,83 2 - 210,6 12 14 Weeks 13,95 0 - 62,53 0 15 Weeks 12,03 9 - 70,97 1 16 Weeks 9,040 - 56,45 1 17 Weeks 8,175 - 55,86 8 18 Weeks 8,099 - 58,17 6 Not Available [facility] (Lab) [address] [facility], [place], [address], 03/20/2023 03:38:18 03/26/20 23 03/26/2023 BHCG, QUANT ITATI VE B-HCG 2323.0 mIU/m L This assay was perfo rmed using [employer] reage nts and test kits. Value s obtai mally with other assay metho ds or kits canno t be used inter luna eably . Refer ence Range s: Non-p regna nt, preme nopau fátima women : 0.0-5 .3 mIU/m L Postm enopa usal women : 0.0-7 .0 mIU/m L Mirella l Pregn maxi: Gesta stephanie l Age bHCG Conc. - mIU/m L 3 Weeks 5.8 - 71.7 4 Weeks 9.5 - 750 5 Weeks 217-7 138 6 Weeks 158 - 31,79 5 7 Weeks 3,697 - 162,5 63 8 Weeks 32,06 5 - 149,5 71 9 Weeks 63,80 3 - 151,4 10 10 Weeks 46,50 9 - 186,9 77 12 Weeks 27,83 2 - 210,6 12 14 Weeks 13,95 0 - 62,53 0 15 Weeks 12,03 9 - 70,97 1 16 Weeks 9,040 - 56,45 1 17 Weeks 8,175 - 55,86 8 18 Weeks 8,099 - 58,17 6 Not Available [facility] (Lab) [address] [facility], [place], [address], 03/27/2023 04:55:24 04/02/20 23 04/02/2023 BHCG, QUANT ITATI VE B-HCG 727.0 mIU/m L This assay was perfo rmed using [employer] n reage nts and test kits. Value s obtai mally with other assay metho ds or kits canno t be used inter luna eably . Refer ence Range s: Non-p regna nt, preme nopau fátima women : 0.0-5 .3 mIU/m L Postm enopa usal women : 0.0-7 .0 mIU/m L Mirella l Pregn maxi: Gesta stephanie l Age bHCG Conc. - mIU/m L 3 Weeks 5.8 - 71.7 4 Weeks 9.5 - 750 5 Weeks 217-7 138 6 Weeks 158 - 31,79 5 7 Weeks 3,697 - 162,5 63 8 Weeks 32,06 5 - 149,5 71 9 Weeks 63,80 3 - 151,4 10 10 Weeks 46,50 9 - 186,9 77 12 Weeks 27,83 2 - 210,6 12 14 Weeks 13,95 0 - 62,53 0 15 Weeks 12,03 9 - 70,97 1 16 Weeks 9,040 - 56,45 1 17 Weeks 8,175 - 55,86 8 18 Weeks 8,099 - 58,17 6 Not Available [facility] (Lab) [address], [place], [address], 04/03/2023 03:05:39 04/16/20 23 04/16/2023 BHCG, QUANT ITATI VE B-HCG 58.4 mIU/m L This assay was perfo rmed using [employer] n reage nts and test kits. Value s obtai mally with other assay metho ds or kits canno t be used inter luna eably . Refer ence Range s: Non-p regna nt, preme nopau fátima women : 0.0-5 .3 mIU/m L Postm enopa usal women : 0.0-7 .0 mIU/m L Mirella l Pregn maxi: Gesta stephanie l Age bHCG Conc. - mIU/m L 3 Weeks 5.8 - 71.7 4 Weeks 9.5 - 750 5 Weeks 217-7 138 6 Weeks 158 - 31,79 5 7 Weeks 3,697 - 162,5 63 8 Weeks 32,06 5 - 149,5 71 9 Weeks 63,80 3 - 151,4 10 10 Weeks 46,50 9 - 186,9 77 12 Weeks 27,83 2 - 210,6 12 14 Weeks 13,95 0 - 62,53 0 15 Weeks 12,03 9 - 70,97 1 16 Weeks 9,040 - 56,45 1 17 Weeks 8,175 - 55,86 8 18 Weeks 8,099 - 58,17 6 Not Available [facility] (Lab) [address] [facility], [place], [address], 04/17/2023 03:50:37 04/29/20 23 04/29/2023 BHCG, QUANT ITATI VE B-HCG 16.6 mIU/m L This assay was perfo rmed using [employer] n reage nts and test kits. Value s obtai mally with other assay metho ds or kits canno t be used inter luna eably . Refer ence Range s: Non-p regna nt, preme nopau fátima women : 0.0-5 .3 mIU/m L Postm enopa usal women : 0.0-7 .0 mIU/m L Mirella l Pregn maxi: Gesta stephanie l Age bHCG Conc. - mIU/m L 3 Weeks 5.8 - 71.7 4 Weeks 9.5 - 750 5 Weeks 217-7 138 6 Weeks 158 - 31,79 5 7 Weeks 3,697 - 162,5 63 8 Weeks 32,06 5 - 149,5 71 9 Weeks 63,80 3 - 151,4 10 10 Weeks 46,50 9 - 186,9 77 12 Weeks 27,83 2 - 210,6 12 14 Weeks 13,95 0 - 62,53 0 15 Weeks 12,03 9 - 70,97 1 16 Weeks 9,040 - 56,45 1 17 Weeks 8,175 - 55,86 8 18 Weeks 8,099 - 58,17 6 Not Available [facility] (Lab) [address] [facility], [place], [address], 04/30/2023 12:49:43 05/14/20 23 05/14/2023 BHCG, QUANT ITATI VE B-HCG 4.7 mIU/m L This assay was perfo rmed using [employer] n reage nts and test kits. Value s obtai mally with other assay metho ds or kits canno t be used inter luna eably . Refer ence Range s: Non-p regna nt, preme nopau fátima women : 0.0-5 .3 mIU/m L Postm enopa usal women : 0.0-7 .0 mIU/m L Mirella l Pregn maxi: Gesta stephanie l Age bHCG Conc. - mIU/m L 3 Weeks 5.8 - 71.7 4 Weeks 9.5 - 750 5 Weeks 217-7 138 6 Weeks 158 - 31,79 5 7 Weeks 3,697 - 162,5 63 8 Weeks 32,06 5 - 149,5 71 9 Weeks 63,80 3 - 151,4 10 10 Weeks 46,50 9 - 186,9 77 12 Weeks 27,83 2 - 210,6 12 14 Weeks 13,95 0 - 62,53 0 15 Weeks 12,03 9 - 70,97 1 16 Weeks 9,040 - 56,45 1 17 Weeks 8,175 - 55,86 8 18 Weeks 8,099 - 58,17 6 Not Available [facility] (Lab) [address] [facility], [place], [address], 05/15/2023 02:56:34 05/12/20 24 05/12/2024 IMAGE GUIDE D PAP AND HPV REGAR DLESS image guided Pap, HPV regardless of Pap result SEE RESULT S BELOW abnormal CASE REPOR T: Cytol ogy Gynec ologi ana Repor t Case: [id number] Autho yun linares Provi hayden: Linette Flores NP Colle cted: 05/12 1713 Order ing Locat ion: [place] [facility] Recei jan: 05/13 1034 First Scree n: Lexy Katz ret, CT Rescr een: Jm Trinidad, CT Speci men: Dolores olmedo Pap - Image d, Cervi x STATE MENT OF ADEQU ACY: Satis facto ry for evalu ation Trans forma tion zone compo nent prese nt ----- ----- ----- ----- ----- ----- ----- ----- ----- ----- ----- ----- ----- ----- ----- ----- ----- ---- FINAL DIAGN OSIS: Negat valeria for Intra epith elial Lesio n or González wilkinson (NIL) . 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 Shift in rodolfo sugge stive of bacte rial vagin osis. Elect alexandrasim solis d by Jm Trinidad, ANGEL on 2023 at 1:23 PM ----- ----- ----- ----- ----- ----- ----- ----- ----- ----- ----- ----- ----- ----- ----- ----- ----- ---- HPV RESUL TS: HPV mRNA E6/E7 : Posit valeria - HPV mRNA Detec tiffanie HPV GENOT YPE 16 (GRAHAM) : Not Detec tiffanie HPV GENOT YPE 18/45 (GRAHAM) : Not Detec tiffanie NOTE: This high risk HPV mRNA assay detec ts fourt een high- risk HPV types (16, 18, 31, 33, 35, 39, 45, 51, 52, 56, 58, 59, 66, 68) witho ut diffe renti ation . This assay can diffe renti ate HPV 16 from HPV 18/45 , but does not diffe renti ate betwe en HPV 18 and HPV 45. A negat valeria HPV 16, 18/45 genot ype assay resul t does not exclu de the possi bilit y of cytol ogic abnor malit ies or of futur e or under lying MARCK 1, MARCK 3 or cance r. COMME NT: This speci men was revie wed by a Cytot echno logis t and/o r Patho logis t (as indic ated in this repor t) after evalu ation using the Thinp rep Imagi ng Syste m. CLINI ANA INFOR MATIO N: Menst rual Statu s: LMP (if appli cable ): Clini ana Histo ry/Pr eviou s Pap: Type of Neopl phoenix (if appli cable ): Signi fican t Clini ana Findi ngs: Other Histo ry: Hormo janneth (if appli cable ): PAP EDUCA STEPHANIE L NOTE: The Pap Test is a scree shara test with an inher ent false negat valeria rate. Liqui d-bas ed sampl ing may decre ase, but will not elimi jeovany, false negat valeria resul ts. A negat valeria resul t does not precl ude the prese nce and/o r devel opmen t of disea se, since the prese nce of abnor mal cells in the sampl e depen ds on the locat ion of the lesio n and sampl ing techn ique. Ronnie nued regul ar scree shara is the best metho d of cance r preve ntion . If repor tiffanie cytol ogic findi ng do not corre late with physi ana and/o r histo rical findi ngs, furth er inves tigat ion is recom johnson d, as clini lee paul nted. Not Available [facility] (Lab) [address] [facility], [place], [address], 05/19/2024 14:27:14 06/23/20 24 06/23/2024 CULTU RE: AEROB IC/AN AEROB IC result report SEE RESULT S BELOW abnormal Test: Cultu re: Aerob ic/An aerob ic Speci men Sourc e: Labia Major a, Right Speci men Type: Micro biolo gy Speci men Speci men Date: 06/23 1727 Resul t Date: 2023 1406 Resul t Statu s: Final resul t Abnor mal: Yes Resul ting Lab: [facility] [address] [facility] [address] Tel: CULTU RE ----- ----- ----- --- Light Growt h Esche grace a coli (Abno rmal) Light Growt h Mirella l skin rodolfo Cultu re sampl es colle cted from sites that are proxi mal to mirella l anaer obic rodolfo , do not provi de usefu l infor matio n. The anaer obic porti on of this cultu re has been credi tiffanie. STAIN ----- ----- ----- --- No organ isms seen SUSCE PTIBI LITY ----- ----- ----- --- Esche grace a coli METHO D MITCHELL ----- ----- ----- ----- ----- ---- ----- ----- ----- ----- ----- AMPIC ILLIN <=8 ug/mL Susce ptibl e AMPIC ILLIN /SULB ACTAM <=8 ug/mL Susce ptibl e AZTRE ONAM <=4 ug/mL Susce ptibl e CEFAZ ZARA <=2 ug/mL Susce ptibl e CEFEP AGNES <=2 ug/mL Susce ptibl e CEFTA ZIDIM E <=1 ug/mL Susce ptibl e CEFTR IAXON E <=1 ug/mL Susce ptibl e CIPRO FLOXA MARCK <=0.2 5 ug/mL Susce ptibl e GENTA MICIN <=2 ug/mL Susce ptibl e LEVOF LOXAC IN <=0.5 ug/mL Susce ptibl e MEROP ENEM <=1 ug/mL Susce ptibl e PIPER ACILL IN/TA ZOBAC JENSEN <=8 ug/mL Susce ptibl e TOBRA MYCIN <=2 ug/mL Susce ptibl e TRIME THOPR IM/DYE LFAME THOXA ZOLE <=2 ug/mL Susce ptibl e Not Available [facility] (Lab) [address], [place], [address], 06/28/2024 15:10:45 06/23/20 24 06/30/2024 CERVI X/END OCERV IX cervical histology Negati ve normal Not Available [facility] ([facility]) [address], [place], [address], 06/30/2024 12:00:13 06/23/20 24 06/30/2024 CERVI X/END OCERV IX endocervical brushing histology Negati ve normal Not Available [facility] ([facility]) [address], [place], [address], 06/30/2024 12:00:13 06/23/20 24 06/30/2024 CERVI X/END OCERV IX results GROSS ING INFOR MATIO N: (B1) CERVI X Recei jan in forma roldan on a spira brush is a 0.3 cm aggre gate of red-b rown mater ial. Speci men is filte red and total ly submi tted. B1 DIAGN OSIS: (B1) CERVI X Benig n ectoc ervic al and endoc ervic al tissu e. No intra epith elial lesio n. UNSP ABNOR MAL CYTOL OG FINDI NGS IN SPECM N FROM CERVI X UTERI (R87. 619) GROSS ING INFOR MATIO N: (A1) ENDOC ERVIX Recei jan in forma roldan on a soft ecc brush is a 1.5 cm aggre gate of mucus and red brown mater ial. Speci men is filte red and total ly submi tted. A1 DIAGN OSIS: (A1) ENDOC ERVIX Benig n endoc ervic al tissu e. No ectoc ervic al tissu e. No intra epith elial lesio n. UNSP ABNOR MAL CYTOL OG FINDI NGS IN SPECM N FROM CERVI X UTERI (R87. 619) Not Available [facility] ([facility]) [address] [facility], [place], [address], 06/30/2024 12:00:13 06/23/20 24 06/23/2024 pregn maxi test, urine HCG negati ve Not Available [facility] [address], [place], [address], 06/23/2024 11:06:39 02/22/20 23 02/21/2023 US, obste tric, trans vagin al No observ ation record ed. [facility] [address], [place], [address], 02/21/2023 13:55:04 02/22/2002/21/2023 US, obste tric, trans vagin al No observ ation record ed. [email or web address] [facility] [address], [place], [address], 02/24/2023 10:53:11 03/06/2003/06/2023 US, obste tric, trans vagin al No observ ation record ed. [email or web address], [place], [address], 03/06/2023 18:50:12 03/06/2003/06/2023 US, obste tric, trans vagin al No observ ation record ed. [email or web address] [facility] [address], [place], [address], 03/07/2023 10:57:48 04/16/20 23 04/16/2023 MAMMO , diagn ostic , digit al, bilat eral No observ ation record ed. [address] [facility], [place], [address], 04/17/2023 15:13:58 04/16/2004/16/2023 US, breas t, unila teral No observ ation record ed. [address] [facility], [place], [address], 04/17/2023 14:49:20 04/16/2004/16/2023 MAMMO , diagn ostic , digit al, bilat eral No observ ation record ed. [address], [address], 04/17/2023 15:13:59 Result Notes None recorded. Problems Name Problem SNOMED Code Status Onset Date Resolution Date Notes Provider Name and Address Organization Details Recorded Time Pregnanc y 87847405 Completed 201901/26/2021 Devijohnnie Moralesmelchormickeykristinaboni ham damon, [facility] 12:31:48 Cystic fibrosis 962054479 Completed Edvin Wasserman MD [address], [place], [address], [facility] 0 18:02:57 Carrier of cystic fibrosis gene mutation [id number] Completed FOB +CF also! MFM - appt 10-10-20 at 12:45 genetic counseli ng & u/s & genetic lab draw if pt wants - denied amnio Devi Baezakristinaboni ham damon, [facility] 12:31:43 Corpus luteum cyst 342004124 Completed 201908/30/2020 - right RESOLVED Devi Baezakristinaboni ham damon, [facility] 12:31:43 Notes:Genetic consult & u/s [facility] PT & FOB + CF 10-10-20 12:45. [facility] informed pt. ph# [phone] Problem Notes None recorded. Procedures Surgical History Date Name Laterality Status Provider Name and Address Organization Details Recorded Time 06/23/20 24 Colposcopy completed Linette Menjivar CNM [address], [place], [address], [facility] 06/23/2024 11:39:13 06/23/20 24 Colposcopy completed Catia Lobo [facility] 06/23/2024 11:04:39 06/23/20 24 Colposcopy completed Catia Lobo [facility] 06/23/2024 11:06:05 05/12/20 24 Date of Last Pap Smear completed Catia Lobo [facility] 06/23/2024 11:04:18 04/16/20 24 Date of Last Mammogram completed Catia Lobo [facility] 05/12/2024 11:13:58 02/13/20 23 Colposcopy completed Linette Menjivar CNM [address], [place], [address], [facility] 02/12/2023 16:57:19 02/13/20 23 Colposcopy completed Catia Lobo [facility] 02/12/2023 19:12:31 10/19/19 22 Colposcopy completed Linette Menjivar CNM [address], [place], [address], [facility] 10/19/2021 12:34:00 10/19/19 22 Colposcopy completed Catia Lobo [facility] 10/19/2021 12:08:11 08/25/19 10 excision of cyst of breast completed Lashaun Blue [facility] 07/05/2020 15:56:09 08/25/19 06 procedure on back completed Catiashahzad Lobo [facility] 11/08/2020 14:47:36 Imaging Results Imaging Date Name Status LastModified by Organization Details LastModified Time 02/21/2023 US, obstetric, transvaginal completed amanda [facility] [address], [place], [address], 02/21/2023 13:55:04 02/21/2023 US, obstetric, transvaginal completed ribharat [address], [place], [address], 02/24/2023 10:53:11 03/06/2023 US, obstetric, transvaginal completed nclshoshana [facility] [address], [place], [address], 03/06/2023 18:50:12 03/06/2023 US, obstetric, transvaginal completed [email or web address] [facility] [address], [place], [address], 03/07/2023 10:57:48 04/16/2023 MAMMO, diagnostic, digital, bilateral completed [address], [address], 04/17/2023 15:13:58 04/16/2023 US, breast, unilateral completed [address], [address], 04/17/2023 14:49:20 04/16/2023 MAMMO, diagnostic, digital, bilateral completed [address], [address], 04/17/2023 15:13:59 Procedure Notes None recorded. Medical Equipment None Reported. Allergies Allergen ID Allergen Name Allergen Category Reaction Reaction Severity Criticality Documentation Date Start Date Code Code System Note Provider Name and Address Organization Details Recorded Time Compazine medicatio n dizziness Not available Not available 03/03/2023202254 6 RxNorm Clifton [facility] 3 14:35:34 2694 acetamino phen / hydrocodo ne medicatio n Not available Not available Not available 07/05/2020 25357 2 RxNorm Lashaun jose [facility] 0 15:54:19 Medications Name Sig Start Date Stop Date Status Note LastModified by Organization Details LastModified Time cyclobenzap rine 10 mg tablet TAKE 1 TABLET BY MOUTH THREE TIMES DAILY NEEDED FOR MUSCLE SPASM 07/05 completed Not Available Not Available Not Available clindamycin HCl 300 mg capsule TAKE 1 CAPSULE BY MOUTH EVERY 12 HOURS FOR 7 DAYS 07/21 completed Not Available Not Available Not Available ibuprofen 800 mg tablet TAKE 1 TABLET BY MOUTH THREE TIMES DAILY NEEDED FOR PAIN 07/05 completed Not Available Not Available Not Available fluconazole 150 mg tablet TAKE ONE TABLET BY MOUTH TODAY AND THE REPEAT DOSE IN 72 HOURS 06/23 completed Not Available Not Available Not Available FreeStyle Lancets 28 gauge USE TO CHECK SUGARS FOUR TIMES DAILY 02/16 completed Not Available Not Available Not Available Compazine 10 mg tablet Take 1 tablet 3 times a day by oral route. 03/03 completed Not Available Not Available Not Available metronidazo le 500 mg tablet TAKE 1 TABLET BY MOUTH EVERY 12 HOURS FOR 7 DAYS 06/23 completed Not Available Not Available Not Available ciprofloxac in 500 mg tablet Take 1 tablet every 12 hours by oral route for 7 days. 07/21 completed Not Available Not Available Not Available Prevacid 15 mg capsule,del ayed release 02/16 completed Not Available Not Available Not Available nystatin-tr iamcinolone 100,000 unit/gram-0 .1 % topical ointment APPLY OINTMENT TOPICALLY TO AFFECTED AREA TWICE DAILY 02/16 completed Not Available Not Available Not Available oxycodone-a cetaminophe n 5 mg-325 mg tablet TAKE 1 TABLET BY MOUTH ONE HOUR PRIOR TO PROCEDURE 02/12 completed Not Available Not Available Not Available alprazolam 0.5 mg tablet TAKE 1 TABLET BY MOUTH EVERY 8 HOURS NEEDED active Not Available Not Available No t Available clindamycin 1 % topical gel APPLY THIN LAYER TOPICALLY ONCE DAILY NEEDED active Not Available Not Available No t Available scopolamine 1 mg over 3 days transdermal patch APPLY 1 PATCH TOPICALLY THREE TIMES A WEEK 03/19 completed Not Available Not Available Not Available diazepam 5 mg tablet TAKE ONE TABLET BY MOUTH ONE HOUR PRIOR TO PROCEDURE 02/12 completed Not Available Not Available Not Available Reglan 5 mg tablet Take 1 tablet 4 times a day by oral route. 03/03 completed Not Available Not Available Not Available escitalopra m 10 mg tablet Take 1 tablet by oral route every day 09/19 completed Not Available Not Available Not Available Tri-Sprinte c (28) 0.18 mg(7)/0.215 mg(7)/0.25 mg(7)-35 mcg tablet TAKE 1 TABLET BY MOUTH ONCE DAILY 07/05 completed Not Available Not Available Not Available duloxetine 30 mg capsule,del ayed release TAKE 1 CAPSULE BY MOUTH ONCE DAILY 12/18 completed Not Available Not Available Not Available 02/16 completed Not Available Not Available Not Available FreeStyle Lite Meter kit USE DIRECTED 02/16 completed Not Available Not Available Not Available FreeStyle Lite Strips USE TO TEST FASTING BLOOD SUGAR IN THE MORNING AND THEN 1 HOUR BEFORE EACH MEAL 02/16 completed Not Available Not Available Not Available Slynd 4 mg (28) tablet TAKE 1 TABLET BY ORAL ROUTE EVERY DAY. 08/08 completed Not Available Not Available Not Available Vitals Date Recorded Body height Body mass index (BMI) Body weight Systolic blood pressure Diastolic blood pressure Provider Name and Address Organization Details Last Updated DateTime 03/19/2023 167.64 cm 35 kg/m2 53721.54 g 136 mm[Hg] 77 mm[Hg] Catia Lobo [facility] 3 15:23:40 Date Recorded Body height Body mass index (BMI) Body weight Systolic blood pressure Diastolic blood pressure Provider Name and Address Organization Details Last Updated DateTime 05/12/2024 167.64 cm 35.7 kg/m2 518789.9 1 g 136 mm[Hg] 86 mm[Hg] Catia Lobo [facility] 4 11:06:27 Date Recorded Body height Body mass index (BMI) Body weight Systolic blood pressure Diastolic blood pressure Provider Name and Address Organization Details Last Updated DateTime 06/23/2024 167.64 cm 36 kg/m2 536196.1 g 152 mm[Hg] 86 mm[Hg] Catia Lobo [facility] 4 11:02:19 Date Recorded Body height Body mass index (BMI) Body weight Systolic blood pressure Diastolic blood pressure Provider Name and Address Organization Details Last Updated DateTime 07/21/2024 167.64 cm 35.8 kg/m2 574459.5 1 g 125 mm[Hg] 82 mm[Hg] Lisa Calderon [facility] 11:36:56 Social History Question Answer Notes LastModified by Organizat ion Details LastModified Time Tobacco Smoking Status Never Smoker Jaycee Mata [facility] 10/19/2021 11:53:21 What Is Your Level Of Alcohol Consumption? Occasional [email or web address] Information not available 10/27/2020 If You Are , What Was Your Level Of Alcohol Consumption Prior To ? Occasional Information not available 10/19/2021 Are You Blind Or Do You Have Difficulty Seeing? No [email or web address] Information n ot available 10/27/2020 What Is Your Level Of Caffeine Consumption? Moderate [email or web address] Information not available 11/22/2020 In The 14 Days Before Symptom Onset, Have You Had Close Contact With A Laboratory-confirm ed COVID-19 While That Case Was Ill? No [email or web address] Information n ot available 10/27/2020 In The 14 Days Before Symptom Onset, Have You Had Close Contact With A Person Who Is Under Investigation For COVID-19 While That Person Was Ill? No [email or web address] Information not available 10/27/2020 Have You Been To An Area Known To Be High Risk For COVID-19? No Information not available 10/27/2020 Are You Deaf Or Do You Have Serious Difficulty Hearing? No Information not available 10/27/2020 What Type Of Diet Are You Following? REGULAR [email or web address] Information n ot available 10/27/2020 Have You Ever Been Counseled For Unhealthy Alcohol Use? No [email or web address] Information not available 10/19/2021 Do You Use Your Seat Belt Or Car Seat Routinely? Yes [email or web address] Information not available 10/27/2020 Do You Have Smoke And Carbon Monoxide Detectors In Your Home? Yes [email or web address] Information not available 10/27/2020 Do You Feel Stressed (tense, Restless, Nervous, Or Anxious, Or Unable To Sleep At Night)? [id number] [email or web address] Information not available 10/27/2020 Do You Use Any Illicit Or Recreational Drugs? No [email or web address] Information not available 10/27/2020 Do You Use Sunscreen Routinely? Yes Information not available 10/27/2020 Has Tobacco Cessation Counseling Been Provided? No [email or web address] Information not available 10/19/2021 Do You Or Have You Ever Used Any Other Forms Of Tobacco Or Nicotine? No [email or web address] Information not available 10/19/2021 Sex: Unknown Functional Status Question Answer Note LastModified by Organizat ion Details LastModified Time Do you have difficulty walking or climbing stairs? No [email or web address] Information not available 10/19/2021 Are you able to walk? YESWOREST [email or web address] Information not available 10/27/2020 Are you able to care for yourself? Yes [email or web address] Information not available 10/19/2021 Do you have difficulty dressing or bathing? No [email or web address] Information not available 10/19/2021 What is your exercise level? Occasional 1-2x's a week [email or web address] Information not available 07/05/2020 Mental Status None recorded. Family History Relationship Description Onset Age of this Age Resolved Age Notes LastModified by Organization Details LastModified Time Mother Cyst of ovary [email or web address] Not available 2023 10:51:46 Mother Mental disorder psychi atric diseas e Not available 12/18/2022 17:52:40 Mother Malignant tumor of cervix [email or web address] Not available 12/18 17:52:40 Maternal Grandfather Hypertensive disorder [email or web address] Not available 12/18 17:52:40 Medical History Condition Response Allergies (Food, seasonal, environmental ) N Other Y Drug/Latex Allergies/Reactions N Breast Cancer N Blood Transfusion N Lung Disease N Dermatologic Disorders N Defects or Inherited Disease N Breast Problem Y Gestational Diabetes N Hematologic disorders N Anesthesia Complications N History of STI Y Deep Vein Thrombosis N Polycystic ovary syndrome N Anxiety Disorder Y Autoimmune disease N Arthritis N Polyps N Infertility N History of abnormal pap Y Acid Reflux (GERD) Y Cancer N Varicosities N Stroke N Neurologic/Epilepsy N Endometriosis N High Cholesterol N Headaches N Fibromyalgia N Kidney Disease N Heart Problems N Thyroid Problems N Kidney or Bladder Problems N GI Problems N Eating Disorder N Anemia Y Art (IVF or FET) N Psychiatric Illness N Ovarian Cancer N Diabetes N Pulmonary (TB, Asthma) N Hepatitis/Liver Disease N No Past Medical History N Eczema N Urinary Tract Infection N Abuse/Domestic Violence N Asthma N Trauma/Violence N Depression/ depression N Heart Disease N Pre-Eclampsia N Hypertension N Osteoporosis N Thrombophilias N Gynecological History Statement/Question Response Abnormal Pap Yes Date of Last Colonoscopy Date of Last Mammogram 04/16/2024 Date of LMP 07/04/2024 Date of DEXA bone scan STIs/STDs Y Colposcopy 06/23/2024 Date of Last Pap Smear 05/12/2024 11 Current Control Method BCPs LMP Approximate Obstetrics History GPAL:G 2 P 1 0 1 1 Type Value Full Term 1 Spontaneous 1 Living 1 Total 2 Past Encounters Encounter ID Performer Location Encounter Start Date Encounter Closed Date Diagnosis/Indication Diagnosis SNOMED-CT Code Diagnosis ICD10 Code Diagnosis Note [id number] Shirin Watts [facility] [address] [address] 07/05/2020 15:21:33 07/05/2020 17:21:41 test positive 259981726 Z32.01 Risk factors addressed: Tobacco Cessation, Safe Sexual Practices, environmen zeeshan, work hazards, travel restrictio ns, seat belt use.Eat a health well balanced diet, avoid alcohol, tobacco, and street drugs. Engage in daily low impact exercise, avoid temperatur e extremes, and cat, rodent, and bird feces.Avoi d travel to areas where zika virus is a concern.Fi rst look offered to patient. First look accepted by patient and will be scheduled. Pt desires NIPT. Sequential Screen handout given and discussed with patient.Ch ildbirth classes recommende d.New OB sheet given. Pt declined pap. Had one right about a year ago. No history of abnormal. If previous , counseling .Pt verbalizes that she understand s the importance of above instructio ns.All questions were answered. Patient reminded to have annual well woman examinatio n and address [facility] . Anxiety 15962277 F41.9 Pt takes xanax only when she will be traveling (specifica lly flying). No planned trips during this . Discussed risks of xanax and discourage d use. Pt verbalized understand ing and will let us know if she has any travel plans so that we can plan ahead. Elderly primigravida 293 47095 O09.519 screening 2437 62561 Z36.89 Z77.011 Genetic in vestigation procedure 08031726 Z31.430 [id number] [facility] [address],[place] [address] 07/05/2020 15:23:07 07/05/2020 17:21:58 screening 769427872 Z36.82 [id number] Edvin Wasserman MD [facility] [address],[place] [address] 08/02/2020 17:05:30 08/02/2020 18:03:26 Routine care 316283198 Z34.92 [id number] Shirin Nguyenbernardshavon [facility] [address],[place] [address] 08/30/2020 10:41:18 08/30/2020 17:32:28 Routine care 118170387 Z34.92 [id number] [facility] [address],[place] [address] 08/30/2020 10:40:19 08/30/2020 17:37:09 screening for malformation 809026348 Z36.3 [id number] [facility] [address],[place] [address] 09/29/2020 15:48:16 10/02/2020 14:01:37 Routine care 377681010 Z34.92 [id number] [facility] [address],[place] [address] 10/27/2020 09:50:46 10/27/2020 12:52:59 [id number] Linette Menjivar CNM [facility] [address] [place] [address] 11/08/2020 14:02:16 11/08/2020 15:15:36 Routine care 734520828 Z34.92 [id number] [facility] [address],[place] [address] 11/08/2020 14:02:01 11/08/2020 14:46:31 Advanced maternal age 250747826 O28.0 Z3A.29 [id number] Shirin Watts [facility] [address],[place] [address] 11/22/2020 09:35:32 11/22/2020 10:17:38 Routine care 728743759 Z34.92 [id number] [facility] [address],[place] [address] 11/22/2020 09:36:24 11/22/2020 11:04:10 Polyhydramnios 88665823 O40.3XX0 Z3A.31 [id number] [facility] [address],[place] [address] 12/06/2020 09:21:38 12/06/2020 09:58:01 Routine care 797811263 Z34.92 [id number] [facility] [address],[place] [address] 12/20/2020 09:26:30 12/20/2020 10:59:17 Routine care 218615388 Z34.92 [id number] Linette Menjivar [facility] [address],[place] [address] 12/26/2020 11:27:38 12/26/2020 14:29:40 Routine care 549691565 Z34.92 [id number] [facility] [address],[place] [address] 12/26/2020 11:27:06 12/26/2020 12:01:42 Uterine size for dates discrepancy 053320274 O26.843 O40.3XX0 Z3A.36 [id number] [facility] [address],[place] [address] 01/05/2021 10:59:01 01/07/2021 14:14:58 Routine care 290971680 Z34.92 [id number] [facility] [address],[place] [address] 01/05/2021 16:23:39 01/05/2021 16:52:33 Polyhydramnios 79090478 O40.3XX0 Z3A.37 [id number] Linette Menjivar [facility] [address],[place] [address] 01/05/2021 16:24:00 01/08/2021 15:47:28 Vaginitis 47069274 N76.0 Routine an tenatal care 312885147 Z34.92 [id number] [facility] [address],[place] [address] 01/11/2021 10:54:53 01/11/2021 17:16:08 [id number] [facility] [address],[place] [address] 01/11/2021 11:57:32 01/11/2021 12:29:42 Polyhydramnios 91191121 O40.3XX0 Z3A.38 [id number] [facility] [address],[place] [address] 01/12/2021 14:25:27 01/12/2021 15:21:29 Routine care 752381269 Z34.92 [id number] Linette Menjivar [facility] [address],[place] [address] 02/16/2021 13:56:12 02/16/2021 15:06:38 care 023410959 Z39.2 [id number] [facility] [address],[place] [address] 08/08/2021 14:20:53 08/08/2021 15:57:09 Anxiety 20044328 F41.9 start lexapro 10mg daily. xanax prn #20, discussed se risks including potential addiction to prn meds, will f/u 6 wks or sooner if needed to ED if any suicidal thoughts Gynecologi c examination 65265004 Z01.419 [id number] Linette Menjivar [facility] [address],[place] [address] 09/19/2021 17:09:31 09/19/2021 17:46:36 Anxiety 15042395 F41.9 se risks benefits reviewed, if suicidal sxs to ED f/u colposcopy and med check [id number] Linette Menjivar [facility] [address],[place] [address] 10/19/2021 11:53:35 10/19/2021 13:23:11 Atypical squamous cells of undetermined significance on cervical Papanicolaou smear 045575873 R87.610 Human oly llomavirus deoxyribonucleic acid detected, high risk on cervical specimen 298066340 R87.810 [id number] Linette Menjivar [facility] [address],[place] [address] 12/18/2022 17:42:59 12/19/2022 17:03:55 Gynecologic examination 97259434 Z01.419 Z11.51 call with cycle and will place IUD/paraga rd [id number] Linette Menjivar [facility] [address],[place] [address] 02/12/2023 15:27:21 02/12/2023 17:53:42 Screening procedure 81288921 Z13.9 Atypical s quamous cells of undetermined significance on cervical Papanicolaou smear 596402049 R87.610 Human oly llomavirus deoxyribonucleic acid detected, high risk on cervical specimen 393528954 R87.810 [id number] [facility] [address],[place] [address] 02/21/2023 12:12:28 02/21/2023 13:02:49 Uncertain viability of 650514326 O36.80X9 Z3A.01 [id number] Adilia Brady [facility] [address],[place] [address] 03/06/2023 12:25:56 03/06/2023 14:01:51 Threatened miscarriage 09828338 O20.0 Z3A.00 [id number] [facility] [address],[place] [address] 03/19/2023 15:17:17 03/19/2023 16:15:02 Contraception care management 995021924 Z30.9 reviewed se risks and benefits, plan twirla once hcg negative, consult dr wasserman for salpingect seamus, consent signed Mixed anxi ety and depressive disorder 985013695 F41.8 call if desires medication , start counseling . list given to ED if any suicidal thoughts Mass of left breast 1224 911052 2685243 N63.20 mammogram and us ordered, precaution s reviewed [id number] [facility] [address],[place] [address] 05/12/2024 10:51:21 05/12/2024 12:02:42 Gynecologic examination 89248822 Z01.419 Z11.51 call with cycle and will place IUD/paraga rd Anxiety 55939049 F41.9 se risks benefits reviewed, if suicidal sxs to ED f/u colposcopy and med check [id number] Linette Menjivar [facility] [address],[place] [address] 06/23/2024 10:37:03 06/23/2024 11:44:45 Screening procedure 66014434 Z13.9 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 clindamyci n gel as prevention , finish oral meds first Human oly llomavirus deoxyribonucleic acid detected, high risk on cervical specimen 796559021 R87.810 [id number] JEREMIAS COX MD [facility] [address],[place] [address] 07/21/2024 11:23:48 07/21/2024 13:58:59 History of abnormal cervical Papanicolaou smear 226623553 Z87.42 - patient reports long hx of +HPV pap smears, followed by normal colposcopi es- frustrated due to yearly painful colposcopy - discussed trial of Gardasil vaccine +/- Papillex supplement to try to clear persistent HPV vs definitive surgical management with hysterecto my- patient declines medical management as above and would like to proceed with hysterecto my- discussed risks of surgery, including bleeding, infection, and injury to adjacent structures - patient does not want any future childbeari ng- state hysterecto my forms signed today Menorrhagia 742435413 N9 2.0 - patient reports long history of heavy bleeding only mildly controlled with OCPs- desires permanent surgical management as above Health Concerns Section Related Observation LastModified by Organization Detai ls LastModified Time None Recorded Concern Status LastModified by Organization Details LastModified Time None Recorded Advance Directives Directive None Recorded Payers Encounter Date Sequence Insurance Name Policy Number Policy Sherman Covered Member ID Sherman Member ID Guarantor Name 03/06/2023 1 [facility] (MEDICAID HMO) [id number] Evon Sorbie [id number] Evon Sorbie 03/19/2023 1 [facility] (MEDICAID HMO) [id number] Evon Sorbie [id number] Evon Sorbie 05/12/2024 1 [facility] (MEDICAID HMO) [id number] Evon Sorbie [id number] Evon Sorbie 06/23/2024 1 [facility] (MEDICAID HMO) [id number] Evon Sorbie [id number] Evon Sorbie 07/21/2024 1 [facility] (MEDICAID HMO) [id number] Evon Sorbie [id number] Evon Sorbie Notes Date Note Type Note Provider Name and Address Organization Details Recorded Time 03/19/2023 text/html follow-up miscarriage; checking labs until zero, still spotting, still some sxs of , nausea and bloatingcheck thyroid panel, family hx abnl antibodieshaving a hard time emotionally dealing with the trauma and loss of miscarriage, discussed lexapro but wants to wait at this time and try counseling. denies any suicidal thoughtsa week ago noticed left breast mass, no pain, no redness, soft, gx cyst on right that was removed;benign Linette Menjivar, CARLYLE [address], [place], [address], [facility] 03/19/2023 16:11:38 05/12/2024 text/html Annual GYNReport ed bypatient.History:no gynecologic complaints Menstrual cycle:Normal menses Urinary symptoms:No hematuria; No incontinence Vulva:No genital lesion Vagina:Normal vaginal discharge Breast:No breast pain; No breast lump; No nipple discharge Current Contraception:Satisf ied with current contraception; Oral contraceptives Sexual complaints:No sexual complaints; No pain during intercourse; Normal libido Menopausal Symptoms:No menopausal symptoms; Normal vaginal lubrication Psychological symptoms:No depression; No anxiety; No PMDD Preventive measures:Encourage self breast examination; Encourage regular exercise; Encourage no tobacco use; Encourage regular mammograms starting age 40; Followed with yearly pap smearsNotes:seeing infinite wellness on thyroid supplement and testosterone pellet Linette Menjivar CNM [address], [place], [address], [facility] 05/12/2024 11:57:32 06/23/2024 text/html hx hpv reviewed colposcopy consent signed UPT negativec/o frequent boils/cysts under arms/groin, discussed HS Linette Menjivar CNM [address], [place], [address], [facility] 06/23/2024 11:40:16 07/21/2024 text/html Patient presents for hysterectomy consult. She reports prolonged hx of +HPV pap smears, all colposcopies are normal. She is frustrated with yearly paps and colposcopies as these have been extremely painful for her. She also reports a history of menorrhagia which is somewhat controlled with control however is still heavy. She does not desire future childbearing. JEREMIAS COX MD [address], [place], [address], [facility] 07/21/2024 13:50:12 OBGyn Episode Ob Episode Information Episode Created Date Number of Fetuses Patient Bloodtype Patient rh Status Prepregnancy Weight lbs Domestic Partner Domestic Partner Phone Father Name Clinical Research Analyst Status 08/02/20 20 1 B Positive 202 CLOSED Fetus Data First Name Last Name Admitted to NICU Weight (g) Sex Living Outcome Pediatric Complications Fetus ID Race Codes Race Delivery Type [id number] 35 F true Full Term 6534 Vaginal Delivery Problems Problem Notes Per genetic counselor - noth ing further needed in for +CF. Recommends PKU after delivery, testing/alert kaiawhina kohanga reo of results and 25% chance of CF. Problem Name Start Date End Date Resolution Snomed Code Not e Corpus luteum cyst 07/05/2020 08/30/2020 [id number] - right RESOLVED Carrier of cystic fibrosis gene mutation [id number] FOB +CF also! M FM - appt 10-10-20 at 12:45 genetic counseling & u/s & genetic lab draw if pt wants - denied amnio Marshal Calculation Initial Marshal Date Initial Exam Date Initial Exam Provider Initial Ultrasound Date Last Menstrual Period Date Ultra Sound Weeks Gestation 01/20/2021 08/02/2020 07/05/2020 04/15/2020 11 Eighteen To Twenty Week Marshal Update Ultra Sound Date Fundal Height At Umbil Quickening Date Ultra Sound Latest Weeks Gestation Final Marshal Confirmed By Final Marshal Confirmed Date Final Marshal Date Ultra Sound Latest Days Gestation 0 [email or web address] 08/02/2020 01/21/20 21 0 Pre-santiago Flowsheet Flowsheet Date 08/02/2020 Young Score Blood Edema Fundus Height Fundus Units Glucose Ketones Leukocytes Nitrite Labor Signs Protein Cervic Dilation Cervic Effacement Cervic Station 15 Type Weight in lbs Pre/Post Dialysis Refused Weight 202.005087188147 BP Diastolic BP Location Tested BP Systolic BP Type 80 R arm 123 sitting Fetus Heart Rate Present A 145 Fetus Movement Comments This patient is a 34-year-ol d 1 at 15 weeks gestation presents for initial care. She is cystic fibrosis carrier. The father seeking testing today. Otherwise she has no worrisome medical or obstetric history. Her aneuploid testing was normal. She is AMA Flowsheet Date 08/30/2020 Young Score Blood Edema Fundus Height Fundus Units Glucose Ketones Leukocytes Nitrite Labor Signs Protein Cervic Dilation Cervic Effacement Cervic Station Type Weight in lbs Pre/Post Dialysis Refused BP Diastolic BP Location Tested BP Systolic BP Type Fetus Heart Rate Present Fetus Movement Comments Flowsheet Date 08/30/2020 Young Score Blood Edema Fundus Height Fundus Units Glucose Ketones Leukocytes Nitrite Labor Signs Protein Cervic Dilation Cervic Effacement Cervic Station neg none trace Type Weight in lbs Pre/Post Dialysis Refused Weight 208.261155993436 BP Diastolic BP Location Tested BP Systolic BP Type 79 130 Fetus Heart Rate Present A 150 Fetus Movement A Yes Comments Having a girl Oralia . Doi ng well. Pt will have afp drawn today. FOB will have CF drawn today. Flowsheet Date 09/29/2020 Young Score Blood Edema Fundus Height Fundus Units Glucose Ketones Leukocytes Nitrite Labor Signs Protein Cervic Dilation Cervic Effacement Cervic Station 23 Type Weight in lbs Pre/Post Dialysis Refused Weight 218.785414033812 BP Diastolic BP Location Tested BP Systolic BP Type 81 127 Fetus Heart Rate Present A 139 Fetus Movement A Yes Comments pt has appt for amnio at [facility] later this month, both CF carriers, precautions reviewed, f/u 4 week ob with GCT Flowsheet Date 10/27/2020 Young Score Blood Edema Fundus Height Fundus Units Glucose Ketones Leukocytes Nitrite Labor Signs Protein Cervic Dilation Cervic Effacement Cervic Station neg none 27 trace Type Weight in lbs Pre/Post Dialysis Refused Weight 222.25635451034 BP Diastolic BP Location Tested BP Systolic BP Type 75 116 Fetus Heart Rate Present A 142 Fetus Movement A Yes Comments patient states that having s ome pelvic pressure, increase hydration, rest , consider maternity belt, rx for tdap given Flowsheet Date 11/08/2020 Young Score Blood Edema Fundus Height Fundus Units Glucose Ketones Leukocytes Nitrite Labor Signs Protein Cervic Dilation Cervic Effacement Cervic Station Type Weight in lbs Pre/Post Dialysis Refused BP Diastolic BP Location Tested BP Systolic BP Type Fetus Heart Rate Present Fetus Movement Comments Flowsheet Date 11/08/2020 Young Score Blood Edema Fundus Height Fundus Units Glucose Ketones Leukocytes Nitrite Labor Signs Protein Cervic Dilation Cervic Effacement Cervic Station neg none trace Type Weight in lbs Pre/Post Dialysis Refused Weight 225.490868589387 BP Diastolic BP Location Tested BP Systolic BP Type 80 115 Fetus Heart Rate Present Fetus Movement A Yes Comments patient states that has issu es with heartburn, reviewed precautions, efw 66%, plan 2 week rpt us for fluid Rosa-23, passed gct last week Flowsheet Date 11/22/2020 Young Score Blood Edema Fundus Height Fundus Units Glucose Ketones Leukocytes Nitrite Labor Signs Protein Cervic Dilation Cervic Effacement Cervic Station none 34 trace Type Weight in lbs Pre/Post Dialysis Refused Weight 228.628362575326 BP Diastolic BP Location Tested BP Systolic BP Type 75 113 Fetus Heart Rate Present Fetus Movement A Yes Comments Doing well. Heartburn has im proved. Encouraged to call and schedule pre admit. Planning tdap soon. U/S to follow. Flowsheet Date 11/22/2020 Young Score Blood Edema Fundus Height Fundus Units Glucose Ketones Leukocytes Nitrite Labor Signs Protein Cervic Dilation Cervic Effacement Cervic Station Type Weight in lbs Pre/Post Dialysis Refused BP Diastolic BP Location Tested BP Systolic BP Type Fetus Heart Rate Present Fetus Movement Comments Flowsheet Date 12/06/2020 Young Score Blood Edema Fundus Height Fundus Units Glucose Ketones Leukocytes Nitrite Labor Signs Protein Cervic Dilation Cervic Effacement Cervic Station neg none 22 trace Type Weight in lbs Pre/Post Dialysis Refused Weight 230.492144532683 BP Diastolic BP Location Tested BP Systolic BP Type 76 116 Fetus Heart Rate Present A 141 Fetus Movement A Yes Comments PATIENT STATES THAT HAVING S OME PAIN AND HEARTBURN, taking prevacid, works well, preadmission scheduled, precautions reviewed f/u 2 weeks plan gbs Flowsheet Date 12/20/2020 Young Score Blood Edema Fundus Height Fundus Units Glucose Ketones Leukocytes Nitrite Labor Signs Protein Cervic Dilation Cervic Effacement Cervic Station neg none 40 trace Type Weight in lbs Pre/Post Dialysis Refused Weight 236.379691214063 BP Diastolic BP Location Tested BP Systolic BP Type 77 115 Fetus Heart Rate Present A 145 Fetus Movement A Yes Comments doing well, precautions revi ewed, GBS today has preadmit scheduled Flowsheet Date 12/26/2020 Young Score Blood Edema Fundus Height Fundus Units Glucose Ketones Leukocytes Nitrite Labor Signs Protein Cervic Dilation Cervic Effacement Cervic Station Type Weight in lbs Pre/Post Dialysis Refused BP Diastolic BP Location Tested BP Systolic BP Type Fetus Heart Rate Present Fetus Movement Comments Flowsheet Date 12/26/2020 Young Score Blood Edema Fundus Height Fundus Units Glucose Ketones Leukocytes Nitrite Labor Signs Protein Cervic Dilation Cervic Effacement Cervic Station neg none trace Type Weight in lbs Pre/Post Dialysis Refused Weight 234.610212102435 BP Diastolic BP Location Tested BP Systolic BP Type 81 120 Fetus Heart Rate Present Fetus Movement A Yes Comments PATIENT STATES HAVING SOME H EARTBUN.SP reviewed u/s with pt and wants pt to check BS QID r/t poly & larger HC. BS testing supplies called out to [facility] in [place]. [email or web address] romero Poly at 27 cm, f/u blood sugars and us next week Flowsheet Date 01/05/2021 Young Score Blood Edema Fundus Height Fundus Units Glucose Ketones Leukocytes Nitrite Labor Signs Protein Cervic Dilation Cervic Effacement Cervic Station Type Weight in lbs Pre/Post Dialysis Refused BP Diastolic BP Location Tested BP Systolic BP Type Fetus Heart Rate Present Fetus Movement Comments Flowsheet Date 01/05/2021 Young Score Blood Edema Fundus Height Fundus Units Glucose Ketones Leukocytes Nitrite Labor Signs Protein Cervic Dilation Cervic Effacement Cervic Station Type Weight in lbs Pre/Post Dialysis Refused BP Diastolic BP Location Tested BP Systolic BP Type Fetus Heart Rate Present Fetus Movement Comments Flowsheet Date 01/05/2021 Young Score Blood Edema Fundus Height Fundus Units Glucose Ketones Leukocytes Nitrite Labor Signs Protein Cervic Dilation Cervic Effacement Cervic Station neg none trace Type Weight in lbs Pre/Post Dialysis Refused Weight 234.270403327024 BP Diastolic BP Location Tested BP Systolic BP Type 81 129 Fetus Heart Rate Present Fetus Movement A Yes Comments patient states that having d ischarge and contractions, us shows poly, irritation to vagina Edward called out precautions reviewed MIL scheduled at 39 weeks, bs all wnl, discontinue Flowsheet Date 01/11/2021 Young Score Blood Edema Fundus Height Fundus Units Glucose Ketones Leukocytes Nitrite Labor Signs Protein Cervic Dilation Cervic Effacement Cervic Station Type Weight in lbs Pre/Post Dialysis Refused BP Diastolic BP Location Tested BP Systolic BP Type Fetus Heart Rate Present Fetus Movement Comments Flowsheet Date 01/11/2021 Young Score Blood Edema Fundus Height Fundus Units Glucose Ketones Leukocytes Nitrite Labor Signs Protein Cervic Dilation Cervic Effacement Cervic Station Type Weight in lbs Pre/Post Dialysis Refused BP Diastolic BP Location Tested BP Systolic BP Type Fetus Heart Rate Present Fetus Movement Comments Flowsheet Date 01/12/2021 Young Score Blood Edema Fundus Height Fundus Units Glucose Ketones Leukocytes Nitrite Labor Signs Protein Cervic Dilation Cervic Effacement Cervic Station neg none trace 1cm 60% -2 Type Weight in lbs Pre/Post Dialysis Refused Weight 235.202475323038 BP Diastolic BP Location Tested BP Systolic BP Type 55 93 Fetus Heart Rate Present A 155 Fetus Movement A Yes Comments PATIENT IS HAVING SOME CONTR ACTIONS AND DISCHARGE, reviewed precautions, polyhydramnios f/u MIL as scheduled Menstrual History Last Menstrual Date Menses Monthly On Bcp Conception Prior Menses Frequency Hcg Plus Date Menarche Onset Age 0804/15/2020 Genetic Screening And Infection History Question Response Note Mental Retardation/Autism false Patient's Age Will Be 35 Years Or Older At Estim ated Date of Delivery true Thalassemia (Maltese, Khmer, Mediterranean, Or Background): MCV < 80 false Neural Tube Defect (Meningomyelocele, Spina Bifi da, Or Anencephaly) false Congenital Heart Defect false Down Syndrome false Sunny-Sachs (eg, Moravian, Cajun, Croatian-Cando) f alse Trena Disease false Sickle Cell Disease Or Trait () false Hemophilia Or Other Blood Disorders false Muscular Dystrophy false Cystic Fibrosis false Guernsey's Chorea false Intellectual Disability/Autism false If Yes, Was Person Tested For Fragile X? false Other Inherited Genetic Or Chromosomal Disorder false Maternal Metabolic Disorder (eg, Type 1 Diabetes , PKU) false Patient Or Baby's Father Had A Child With Defects Not Listed Above false Recurrent Loss, Or A Stillbirth false Medications (including Suppl ements, Vitamins, Herbs, OTC Drugs), Illicit/Recreational Drugs, Alcohol false If Yes, Agent(s) And Strength/Dosage false Any Other Genetic History false Live With Someone With TB Or Exposed To TB false Patient Or Partner Has History Of Genital Herpes false Rash Or Viral Illness Since Last Menstrual Perio d false History Of STD, Gonorrhea, Chlamydia, HPV, Syphi lis false Other Infection History false History of HIV false History of Hepatitis false Prior GBS-infected child false Hemoglobinopathy Or Carrier false Other Structural Defect false Recent Travel History Outside of Country false Delivery Information Delivery Date Delivery Type Labor Anesthesia Weeks Gestation Incision Type Labor Labor Length Hrs Delivered By Post Complications Tubal Sterilization Discharge Date Comments 1 Induce d Regional-Ep idural 39.2 false Linette Menjivar CNM Discharge Information Feeding Method Contraceptive Method Maternal HG B and HCT Levels Breast Ob Episode Information Episode Created Date Number of Fetuses Patient Bloodtype Patient rh Status Prepregnancy Weight lbs Domestic Partner Domestic Partner Phone Father Name Clinical Research Analyst Status 03/07/20 23 1 CLOSED Fetus Data First Name Last Name Admitted to NICU Weight (g) Sex Living Outcome Pediatric Complications Fetus ID Race Codes Race Delivery Type , Spontane ous Marshal Calculation Initial Marshal Date Initial Exam Date Initial Exam Provider Initial Ultrasound Date Last Menstrual Period Date Ultra Sound Weeks Gestation 0 Eighteen To Twenty Week Marshal Update Ultra Sound Date Fundal Height At Umbil Quickening Date Ultra Sound Latest Weeks Gestation Final Marshal Confirmed By Final Marshal Confirmed Date Final Marshal Date Ultra Sound Latest Days Gestation 0 0 Menstrual History Last Menstrual Date Menses Monthly On Bcp Conception Prior Menses Frequency Hcg Plus Date Menarche Onset Age Delivery Information Delivery Date Delivery Type Labor Anesthesia Weeks Gestation Incision Type Labor Labor Length Hrs Delivered By Post Complications Tubal Sterilization Discharge Date Comments 3 Discharge Information Feeding Method Contraceptive Method Maternal HG B and HCT Levels
--- OUTSIDE RECORDS SUMMARY | 2024-10-18 03:25 | XMS_ITS | Clinical Summary ---
Author Organization [facility] Address [address] [place] [address] Care Team Providers Care Commercial Accountant Name Role Phone Unavailable Primary Care Provider Unavailabl e Source Comments [facility],non-owned Affiliates and Associated Physician Practices is amultiple site organization consisting of ambulatory clinics and hospital sitesin [place], [place], [place] and [place]. This disclosure is being madepursuant to the Care Everywhere program and may not contain all information available regarding this patient. Last updated 18.[facility] Active Problems Problem Noted Date Diagnosed Date Advanced maternal age 0210/10/2020 Cystic fibrosis carrier 10/10/2020 Social History Tobacco Use Types Packs/Day Years Used Date Smoking Tobacco: Never Assessed Sex and Gender Information Value Date Recorded Sex Assigned at Not on file Gender Identity Not on file Sexual Orientation Not on file Plan of Treatment Health Maintenance Due Date Last Done Comments PAP SMEAR 1984 HIV SCREENING 01/01/2000 HEPATITIS C SCREENING 12/27/2002 DTAP/TDAP/TD VACCINES (1 - Tdap) 01/01/2004 HEPATITIS B VACCINE (1 of 3 - 19+ 3-dose series) 01/01/2004 COVID-19 VACCINE (2023-2 5 season) 2024 INFLUENZA VACCINE (#1) 2024 DEPRESSION SCREENING 08/25/2024 ZOSTER VACCINE (1 of 2) 2034 HIB VACCINE Aged Out No longer eligi ble based on patient's age to complete this topic HPV VACCINE Aged Out No longer eligi ble based on patient's age to complete this topic MENINGOCOCCAL (Group B) VACCINE Aged Out No longer eligible based on patient's age to complete this topic MENINGOCOCCAL VACCINE Aged Out No dinorah betsy eligible based on patient's age to complete this topic PNEUMOCOCCAL VACCINE Aged Out No long er eligible based on patient's age to complete this topic
--- OUTSIDE RECORDS SUMMARY | 2024-10-18 03:25 | XMS_ITS | Clinical Summary ---
Author Organization [address] Address [address] [place] [id number] Care Team Providers Care Business Administration Program Chair Name Role Phone Lashaun Nolasco MD Primary Care Provi hayden Allergies Active Allergy Reactions Criticality Noted Date Comments Hydrocodone-Acetaminophen Vomiting Low Medications norgestimate-et hinyl estradioL (Tri-Sprintec, 28,) 0.18/0.215/0.25 mg-35 mcg (28) per tablet Take 1 tablet by mouth daily 84 tablet 1 12/15/2019 Active ALPRAZolam (Xanax) 0.5 mg tablet Take 1 tablet (0.5 mg total) by mouth once as needed for anxiety for up to 1 dose 30 tablet 02/01/2020 Active Active Problems Problem Noted Date Diagnosed Date Acute left-sided low back pain with left-sided s ciatica 12/15/2019 Assessment & Plan (12/15/2019 10:20 AM CDT): No red flags on exam. Patient educated about the diagnosis, and treatment options. Medications as prescribed-flexeril can cause drowsiness Will hold off on steroids at this time Reviewed the risks/benefits/side effects of medication The patient is encouraged to consider physical therapy for further guidance and treatment. If symptoms worsen or change, please call the office Follow up in 4 weeks for re-evaluation Additional Information: The patient may use ice or heat for 15-20 minutes to help relieve pain, stay active but avoid high impact activity, and always lift with the legs not the back. Class 1 obesity due to exces s calories without serious comorbidity with body mass index (BMI) of 33.0 to 33.9 in adult 02/08/2019 Assessment & Plan (12/15/2019 10:21 AM CDT): BMI Follow-up includes: nutrition counseling. 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 Assessment & Plan (02/08/2019 2:18 PM CDT): Stable Continue current regimen New scripts sent Cannot drive when she takes it Call for questions or concerns Mass of breast 09/12/2010 Immunizations Immunization Administration Dates Next Due Pfizer SARS-CoV-2 Monovalent Vaccination (12+ Yrs) PURPLE 07/01/2021 Tdap 11/24/2020 Surgical History Surgery Date Site/Laterality Comments PILONIDAL CYSTECTOMY BREAST CYST EXCISION Medical History Medical History Date Comments Flying phobia Family History Medical History Relation Name Comments Hypertension Maternal Grandfather Hypertension Maternal Grandmother Relation Name Status Comments Maternal Grandfather Maternal Grandmother Social History Tobacco Use Types Packs/Day Years Used Date Smoking Tobacco: Never Smokeless Tobacco: Never Alcohol Use Standard Drinks/Week Comments Yes 0 (1 standard drink = 0.6 oz pur e alcohol) rarely PHQ-2 Answer Date Recorded PHQ-2 Total Score (If total score is 3 or more points, staff should administer the PHQ-9) 0 12/15/2019 Personal Safety Answer Date Recorded Getting School Help Needed Not on file 11/07 Comments No Sex and Gender Information Value Date Recorded Sex Assigned at Not on file 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 Gender Identity Female 06/06/2020 9:13 AM CDT Sexual Orientation Straight 06/06/2020 9: 13 AM CDT Obstetrics History Last Filed Vital Signs Vital Sign Reading Time Taken Comments Blood Pressure 104/80 12/15/2019 9:27 AM CDT Pulse 99 12/15/2019 9:27 AM CDT Temperature 36.9 C (98.5 F) 12/15/2019 9:27 AM CDT Respiratory Rate 16 12/15/2019 9:27 AM CDT Oxygen Saturation 98% 12/15/2019 9:27 AM CDT Inhaled Oxygen Concentration - - Weight 93.4 kg (206 lb) 12/15/2019 9:27 AM CDT Height 167.6 cm (5' 6 ) 12/15/2019 9:27 AM CDT Body Mass Index 33.25 12/15/2019 9:27 AM CDT Plan of Treatment Not on file Insurance [facility] Care Teams Business Administration Program Chair Relationship Specialty Start Date End Date Lashaun Nolasco MD [facility] [address] [place] [address] PCP - General Family Medicine 02/05/19
--- OUTSIDE RECORDS SUMMARY | 2024-10-18 03:25 | XMS_ITS | Referral Summary ---
Author Organization [facility] Address [address] [place] [address] Care Team Providers Care Choir Member Name Role Phone Unavailable Primary Care Provider Unavailabl e Source Comments [facility],non-owned Affiliates and Associated Physician Practices is amultiple site organization consisting of ambulatory clinics and hospital sitesin [place], [place], [place] and [place]. This disclosure is being madepursuant to the Care Everywhere program and may not contain all information available regarding this patient. Last updated 18.[facility] [employer] Active Problems Problem Noted Date Diagnosed Date Advanced maternal age 0210/10/2020 Cystic fibrosis carrier 10/10/2020 Social History Tobacco Use Types Packs/Day Years Used Date Smoking Tobacco: Never Assessed Sex and Gender Information Value Date Recorded Sex Assigned at Not on file Gender Identity Not on file Sexual Orientation Not on file Plan of Treatment Not on file
--- OUTSIDE RECORDS SUMMARY | 2024-10-18 03:25 | XMS_ITS | Patient Health Summary ---
Author Organization [facility] Address [address] [place] [address] Care Team Providers Care Institutional Asset Manager Name Role Phone Unavailable Primary Care Provider Unavailabl e Note from [facility],non-owned Affiliates and Associated Physician Practices is amultiple site organization consisting of ambulatory clinics and hospital sitesin [place], [place], [place]. This disclosure is being madepursuant to the Care Everywhere program and may not contain all information available regarding this patient. Last updated 18.[facility] Active Problems Problem Noted Date Diagnosed Date Advanced maternal age 0210/10/2020 Cystic fibrosis carrier 10/10/2020 Social History Tobacco Use Types Packs/Day Years Used Date Smoking Tobacco: Never Assessed Sex and Gender Information Value Date Recorded Sex Assigned at Not on file Gender Identity Not on file Sexual Orientation Not on file
--- OUTSIDE RECORDS SUMMARY | 2024-10-18 03:25 | XMS_ITS | Referral Summary ---
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
[2024-10-18] MEDS: LACTATED RINGERS 1,000 ML 30 ML IV CONT ×2 (10:45→15:28)
--- NOTE | 2024-10-18 11:32 | PM.IMHP ---
H&P: HPI History of Present Illness Date/Time: 10/18/24 11:32 Chief Complaint: persistent abnormal pap smears and abnormal uterine bleeding Narrative: Patient is a 38 year old female who presents for total laparoscopic hysterectomy and bilateral salpingectomy with cystoscopy. She reports prolonged hx of +HPV pap smears, all colposcopies are normal. She is frustrated with yearly paps and colposcopies as these have been extremely painful for her. She also reports a history of menorrhagia which is somewhat controlled with control however is still heavy. She does not desire future childbearing. Medical vs surgical management of AUB and abnormal pap smears have been discussed with the patient including risks and benefits of each, and she desires to proceed with surgical management as scheduled. Denies nausea, vomiting, abdominal pain, dysuria, fevers or chills. Review of Systems Review of Systems: All systems reviewed & are unremarkable except as noted in HPI and below PMFSH Past Medical History Medical History (Updated 10/18/24 @ 11:36 by Brando Gutierres MD) Obesity Anxiety Family History Family History Other No pertinent family history Social History Social History Smoking status: Never smoker Substance use: never Living arrangements: with family Gender identity (if verbalized by the patient): Female Spiritual care concerns: No Meds Home Medications and Allergies Home Medications ?Medication ?Instructions ?Recorded ?Confirmed ?Type No Home Medications 10/11/24 10/11/24 History Allergies Allergy/AdvReac Type Severity Reaction Status Date / Time codeine AdvReac Vomiting Verified 10/11/24 10:07 Exam Const: General: comfortable and no acute distress HENMT: Mouth: Yes moist mucous membranes Resp: Effort & Inspection: normal respiratory effort Skin: General skin exam: normal color Extrem: General: normal to inspection Psych: Mental Status: mental status grossly normal Assessment and Plan Assessment and plan (1) HPV (human papilloma virus) infection: Code(s): B97.7 - Papillomavirus as the cause of diseases classified elsewhere Status: Acute (2) Abnormal uterine bleeding (AUB): Code(s): N93.9 - Abnormal uterine and vaginal bleeding, unspecified Status: Acute Assessment and Plan: - patient reports long hx of menorrhagia not well controlled on hormonal control as well as persistently positive HPV pap smears with normal colposcopy - desires definitive surgical management with total laparoscopic hysterectomy, bilateral salpingectomy, and cystoscopy - risks and benefits discussed with patient who voices understanding - will proceed as scheduled
--- NOTE | 2024-10-18 11:38 | WPDHPUPDATE1 ---
History and Physical Update Update Date/Time: 10/18/24 11:38 History and Physical has been reviewed, including an updated exam of the patient. There are NO changes in the patient's condition. Risks, benefits, and alternatives have been discussed and questions answered. Patient agrees to proceed with procedure.
--- NOTE | 2024-10-18 12:19 | P.PNAN_ITS ---
Anes - Initial Pre Proc Eval Procedure: Operation Date: 10/18/24 12:30 Proposed Procedures p Total Laparoscopic Hysterectomy with Bilateral Salpingectomy - Brando Gutierres MD Date/Time: 10/18/24 12:19 Surgeon: Brando Gutierres MD Pre Op Diagnosis: Hx of abnormal pap smear Patient Data Age: 38 Gender: F Height: 1.68 m Weight: 100 kg Allergies Allergy/AdvReac Type Severity Reaction Status Date / Time codeine AdvReac Vomiting Verified 10/11/24 10:07 Home Medications ?Medication ?Instructions ?Recorded ?Confirmed ?Type docusate sodium 100 mg tablet 100 mg PO BID #60 tabs 10/18/24 Rx ibuprofen 600 mg tablet 600 mg PO Q6H PRN pain #30 tabs 10/18/24 Rx ondansetron HCl 4 mg tablet 4 mg PO Q6H PRN nausea and 10/18/24 Rx vomiting #20 tabs oxycodone 5 mg tablet 5 mg PO Q4H PRN pain #20 tabs 10/18/24 Rx Patient hx anesthesia problems: none Family hx anesthesia problems: none Results Review: All pre-operative results and documents have been reviewed as part of the pre- operative evaluation. [facility] Past Medical History Medical History Obesity Anxiety Family History Family History Other No pertinent family history Social History Social History Smoking status: Never smoker Substance use: never Living arrangements: with family Gender identity (if verbalized by the patient): Female Spiritual care concerns: No Anes - Eval Final PreProcedure Day of Procedure 10/18/24 12:19 Patient weight: obese Lungs: normal air movement Airway: Mallampati scale class II Neurological: alert and oriented Last oral intake: >/= 8 hours ASA classification: III Emergent: no Anesthetic plan: proceed Anesthesia type and monitoring: general ETT and standard monitoring Results Review: All pre-operative results and documents have been reviewed as part of the pre- operative evaluation. BMI 35, anemia by hx. Repeat CBC pending. Informed Consent: The patient's anesthetic plan and its attendant risks and benefits were discussed with the patient/family/POA. Questions were solicited and answers prov ided to the satisfaction of the patient/family/POA.
[2024-10-18 12:43] LABS: Hematocrit 40.6 % (37.0-47.0); Mean Corpuscular Hemoglobin 27.3 pg (26-34); Mean Corpuscular Volume 85.1 fl (80-100); Mean Platelet Volume 9.5 fl (7.4-10.4); Platelet Count Result 268 k/mm3 (150-375); Red Blood Count 4.77 M/mm3 (4.2-5.4); Red Cell Distribution Width 13.3 % (11.5-14.5)
[2024-10-18] MEDS: SCOPOLAMINE 1 MG PATCH 1 PATCH TRANSDERM (13:00)
[2024-10-18] MEDS: ACETAMINOPHEN 500 MG TABLET 1000 MG PO (13:13)
[2024-10-18] MEDS: KETOROLAC 15 MG/ML VIAL (*BKC) IV PUSH (13:14)
[2024-10-18] MEDS: ceFAZolin 2 GM/D5W 50 ML 2 GM/50 ML BAG IVPB (13:18)
[2024-10-18] MEDS: LIDO 1%/EPINEPHRINE 1:100,000 20 ML VIAL 30 ML INFILTRATE (14:15)
--- NOTE | 2024-10-18 15:19 | W.PM.PROC2 ---
Procedure Note - Detailed Date of Procedure 10/18/24 Pre-op Diagnosis Abnormal uterine bleeding, persistently abnormal HPV+ pap smears Post-op Diagnosis Same Procedure Performed total laparoscopic hysterectomy and bilateral salpingectomy with cystoscopy Surgeon Brando Gutierres MD Anesthesia General Findings normal appearing uterus, bilateral fallopian tubes and bilateral ovaries. Duplicated right ureter, both seen peristalsis before and at the end of the procedure, as well as normal single left ureter Description of Procedure The patient was taken to the operating room with IV fluids infusing and placed in dorsal supine position. She was given general anesthesia by the anesthesiologist without difficulty. She was then repositioned in the dorsal lithotomy position and prepped and draped in the usual sterile manner. A Hunter catheter was placed in the patient's bladder. The Noreen uterine manipulator was place in the cervix and the vaginal balloon was insufflated. Legs were returned to physiologic position. An oral gastric tube was placed in the stomach to suction any contents. A small incision was made in the abdomen in the umbilicus. A 5mm trocar was placed into the umbilicus under direct vision. Intraabdominal placement was confirmed with an opening pressure of 6mm. After adequate visualization two 5 mm ports were placed lateral to the inferior epigastic vessels on the left. The [place] Ligasure was used throughout the case. The bilateral ureters were visualized peristalsing on the pelvic sidewall. After evaluating the pathology the hysterectomy was begun by coagulating and cutting the uteroovarian pedicles and the round ligaments. The bladder flap was created the bladder from the lower uterine segment.The uterine vessels were skeletonized bilaterally,coagulated and then cut. The Ligasure L hook was used to create the colpotomy anteriorly and continued around the circumference of the cervix. The uterus was delivered vaginally. After adequate hemostasis the vaginal cuff was closed with V-loc suture in a running fashion. The abdominal cavity was lavaged with normal saline; there was no active bleeding. The remainder of the left fallopian tube was detached from the mesosalpinx using the Ligasure. The left tube was removed through the abdominal ports. The same procedure was performed on the right. The pedicles were noted to be hemostatic. Surgicel powder was placed along the vaginal cuff. Methylene blue dye was injected intravenously, cystoscopy was performed. Both ureters showed normal flow and there was no damage to the bladder. Instruments were removed under direct vision and as much CO2 was removed as possible. The abdomen was washed and the incision sites were closed with 4-0 Monocryl. The incisions were covered with skin glue. Patient tolerated the procedure well. Sponge, lap, needle, and instrument counts were correct. Patient was awakened and taken to the PACU in stable condition by the anesthesiologist. Estimated Blood Loss 50 Pathology Yes Complications No immediate complications Condition Stable Disposition Observation
[2024-10-18] MEDS: fentaNYL CITRATE INJ (*CRX) 100 MCG/2 ML VIAL 25 MCG IV PUSH ×4 (16:00→16:36)
[2024-10-18] MEDS: ONDANSETRON INJ 4 MG/2 ML VIAL IV PUSH (17:26)
== END 2024-10-18 18:10 | disposition home or self-care (01) ==
PROVIDERS: Anesthesiology; PCP Family Medicine; Visit Provider Obstetrics & Gynecology
PROC: 0UT9FZZ Resection of Uterus, Via Natural or Artificial Opening With Percutaneous Endoscopic Assistance (ICD-10-PCS; CPT 58571; principal; 2024-10-18 12:30)
DX: N93.9 Abnormal uterine and vaginal bleeding, unspecified (principal); Q62.5 Duplication of ureter; N80.03 Adenomyosis of the uterus; D25.2 Subserosal leiomyoma of uterus; B97.7 Papillomavirus as the cause of diseases classified elsewhere; E66.9 Obesity, unspecified; Z68.35 Body mass index [BMI] 35.0-35.9, adult
CPT/HCPCS: 58571; 36415; 85027; 88307; A9270; J0690; J1100; J1171; J1200; J1885; J2004; J2250; J2405; J2704; J3010; J7030; J7120; Q9968

== ENCOUNTER 2025-01-05 10:02 | Outpatient (CLI) | payer OTHER, SELFPAY ==
--- NOTE | ~2025-01-05 | MM_ITS ---
EXAMINATION: MM screening rey BI w radha HISTORY: Screening TECHNIQUE: Craniocaudal and mediolateral oblique 3-D tomosynthesis images were obtained and synthetic 2-D images were generated. CAD analysis was submitted and interpreted. COMPARISON: Comparison to multiple prior studies sequentially, with oldest reviewed study dated 04/16. BREAST PARENCHYMAL COMPOSITION: Dense: The breasts are extremely dense, which lowers the sensitivity of mammography. FINDINGS: There is a developing mass in the upper outer quadrant of the left breast, anterior third. The right breast is stable without evidence for malignancy. IMPRESSION: 1. Developing left breast mass, upper outer quadrant, anterior third. 2. Additional mammographic views and possible breast ultrasound are recommended. BI-RADS Category 0: Incomplete: Needs additional imaging evaluation. Reviewed, dictated and finalized at location A. IMPRESSION: 1. Developing left breast mass, upper outer quadrant, anterior third. 2. Additional mammographic views and possible breast ultrasound are recommended . BI-RADS Category 0: Incomplete: Needs additional imaging evaluation.
--- OUTSIDE RECORDS SUMMARY | 2025-01-05 10:26 | XMS_ITS | Clinical Summary ---
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
--- OUTSIDE RECORDS SUMMARY | 2025-01-05 10:26 | XMS_ITS | Referral Summary ---
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
--- OUTSIDE RECORDS SUMMARY | 2025-01-05 10:26 | XMS_ITS | Data Portability ---
Author Organization [facility] [place] Address [address] [place] [address] [place] [address] Assessment Encounter Date Assessment Date Assessment LastModified by Organization Details LastModified Time 06/23/2024 06/23/2024 await pap results, plan consult for hysterectomy wants female md shook Not available 06/23/2024 11:38:12 Plan of Treatment Reminders Order Date Submit Date Provider Last Modified By Organization Details Last Modified Time Details Appointments None recorded. Lab test, urine 2023 024 [email or web address] 1 [place] [facility] [address], [place], [address], 11:06:57 Referral None recorded. Procedures None recorded. Surgeries None recorded. Imaging None recorded. Medication Orders clindamycin HCl 300 mg capsule 2023 024 [facility] [address] [place], [address], 4 11:37:24 clindamycin 1 % topical gel 2023 025 [facility] [address] [place], [address], 5 12:49:29 Patient TargetsNo targets recorded. Patient InstructionsNo instructions recorded. Reason for Referral None Reported. Results Created Date Observation Date Name Description Value Unit Range Abnormal Flag Note LastModifiedBy Organization Detail LastModifiedTime 06/23/20 24 06/23/2024 CULTU RE: AEROB IC/AN AEROB IC result report SEE RESULT S BELOW abnormal Test: Cultu re: Aerob ic/An aerob ic Speci men Sourc e: Labia Major a, Right Speci men Type: Micro biolo gy Speci men Speci men Date: 06/23 1727 Resul t Date: 2023 1406 Resul t Statu s: Final resul t Abnor mal: Yes Resul guichog Lab: [facility] [address] [facility] [address] Tel: CULTU RE ----- ----- ----- --- Light Growt h Esche grace a coli (Abno rmal) Light Growt h Mirella l skin rodolfo Cultu re sampl es colle cted from sites that are proxi mal to mirella l anaer obic rodolfo , do not provi de usefu l infor matluz marina n. The anaer obic porti on of [...] <=2 ug/mL Susce ptibl e Not Available [facility] (Lab) [address] [facility], [place], [address], 06/28/2024 15:10:45 06/23/20 24 06/30/2024 CERVI X/END OCERV IX cervical histology Negati ve normal Not Available [facility] ([facility]) [address] , [place], [address], 06/30/2024 12:00:13 06/23/20 24 06/30/2024 CERVI X/END OCERV IX endocervical brushing histology Negati ve normal Not Available [facility] ([facility]) [address] [facility] [address] , [place], [address], 06/30/2024 12:00:13 06/23/20 24 06/30/2024 CERVI X/END [...] CERVI X UTERI (R87. 619) Not Available [facility] ([facility]) [address], [place], [address], 06/30/2024 12:00:13 06/23/20 24 06/23/2024 pregn maxi test, urine HCG negati ve Not Available [place] [address], [place], [address], 06/23/2024 11:06:39 Result Notes None recorded. Problems Name Problem SNOMED Code Status Onset Date Resolution Date Notes Provider Name and Address Organization Details Recorded Time Pregnanc y 58135910 Completed 201901/26/2021 Devi jose, [facility] 1 12:31:48 Cystic fibrosis 014899463 Completed Edvin Curry MD [address], [place], [address], [facility] 0 18:02:57 Carrier of cystic fibrosis gene mutation 688470801 Completed FOB +CF also! MFM - appt 10-10-20 at 12:45 genetic counseli ng & u/s & genetic lab draw if pt wants - denied amnio Devi jose, [facility] 1 12:31:43 Corpus luteum cyst 247658988 Completed 201908/30/2020 - right RESOLVED Devi jose, [facility] 1 12:31:43 Notes:Genetic consult & u/s [facility] PT & FOB + CF 10-10-20 12:45. [facility] informed pt. ph# [phone] Problem Notes None recorded. Procedures Surgical History Date Name Laterality Status Provider Name and Address Organization Details Recorded Time 10/18/19 25 Total Hysterectomy completed Catia Lobo [facility] 11/30/2024 09:34:47 06/23/20 24 Colposcopy completed Linette Menjivar CNM [address], [place], [address], [facility] 06/23/2024 11:39:13 06/23/20 24 [facility] 06/[facility]/2024 11:04:39 06/23/20 24 Colposcopy completed Catia Lobo [facility] 06/23/2024 11:06:05 05/12/20 24 Date of Last Pap Smear completed Catia Lobo [facility] 06/23/2024 11:04:18 04/16/20 24 Date of Last Mammogram completed Catiashahzad Lobo [facility] 05/12/2024 11:13:58 02/13/20 23 Colposcopy completed Linette Menjivar CNM [address], [place], [address], [facility] 02/12/2023 16:57:19 02/13/20 23 Colposcopy completed Catia Lobo [facility] 02/12/2023 19:12:31 10/19/19 22 Colposcopy completed Linette Menjivar CNM [address], [place], [address], [facility] 10/19/2021 12:34:00 10/19/19 22 Colposcopy completed Catia Lobo [facility] 10/19/2021 12:08:11 08/25/19 10 excision of cyst of breast completed Lashaun Blue [facility] 07/05/2020 15:56:09 08/25/19 06 procedure on back completed Catia Lobo [facility] 11/08/2020 14:47:36 Imaging Results None recorded. Procedure Notes None recorded. Medical Equipment None Reported. Allergies Allergen ID Allergen Name Allergen Category Reaction Reaction Severity Criticality Documentation Date Start Date Code Code System Note Provider Name and Address Organization Details Recorded Time 37001 Compazine medicatio n dizziness Not available Not available 03/03/20232022 6 RxNorm Clif[place] Jones [facility] 3 14:35:34 2694 acetamino phen / hydrocodo ne medicatio n Not available Not available Not available 07/05/2020 54987 2 RxNorm Lashaun Blue [facility] 0 15:54:19 Medications Name Sig Start [...] completed Not Available Not Available Not Available benzonatate 200 mg capsule 11/01 completed Not Available Not Available Not Available FreeStyle Lancets 28 gauge USE TO CHECK SUGARS FOUR TIMES DAILY 02/16 completed Not Available Not Available Not Available ondansetron HCl 4 mg tablet TAKE 1 TABLET BY MOUTH EVERY 6 HOURS NEEDED FOR NAUSEA AND VOMITING 11/30 completed Not Available Not Available Not Available prednisone 20 mg tablet 11/01 completed Not Available Not Available Not Available [...] Available Not Available alprazolam 0.5 mg tablet 1 tab every 8 hours as needed 2024 active Not Available Not Available Not Avai lable clindamycin 1 % topical gel APPLY A THIN LAYER TO THE AFFECTED AREA(S) BY TOPICAL ROUTE 1 TIMES PER DAY prn 11/01 completed Not Available Not Available Not Available ibuprofen 600 mg tablet TAKE 1 TABLET BY MOUTH EVERY 6 HOURS NEEDED FOR PAIN 11/01 completed Not Available Not Available Not Available scopolamine 1 mg over 3 days [...] completed Not Available Not Available Not Available oxycodone 5 mg tablet TAKE 1 TABLET BY MOUTH EVERY 4 HOURS NEEDED FOR PAIN 11/01 completed Not Available Not Available Not Available escitalopra m 10 mg tablet Take 1 tablet by oral route every day 09/19 completed Not Available Not Available Not Available Tri-Sprinte c (28) 0.18 mg(7)/0.215 mg(7)/0.25 mg(7)-0.035 mg tablet TAKE 1 TABLET BY MOUTH ONCE [...] Updated DateTime 06/23/2024 167.64 cm 36 kg/m2 500492.1 g 152 mm[Hg] 86 mm[Hg] Catia Lobo [facility] 4 11:02:19 Date Recorded Body height Body mass index (BMI) Body weight Systolic blood pressure Diastolic blood pressure Provider Name and Address Organization Details Last Updated DateTime 07/21/2024 167.64 cm 35.8 kg/m2 208763.5 1 g 125 mm[Hg] 82 mm[Hg] Lisa Calderon [facility] 4 11:36:56 Date Recorded Body height Body mass index (BMI) Body weight Systolic blood pressure Diastolic blood pressure Provider Name and Address Organization Details Last Updated DateTime 11/01/2024 167.64 cm 36.6 kg/m2 409423.4 7 g 125 mm[Hg] 84 mm[Hg] RUT Carter [facility] 5 12:36:01 Date Recorded Body height Body mass index (BMI) Body weight Systolic blood pressure Diastolic blood pressure Provider Name and Address Organization Details Last Updated DateTime 11/30/2024 167.64 cm 37.6 kg/m2 106531.0 2 g 134 mm[Hg] 73 mm[Hg] Catia Lobo [facility] 09:33:40 Social History Question Answer Notes LastModified by Organizat ion Details LastModified Time Tobacco Smoking Status Never Smoker Jaycee jose [facility] 10/19/2021 11:53:21 If You Are , What Was Your Level Of Alcohol Consumption Prior To ? Occasional [email or web address] Information not available 10/19/2021 Are You Blind Or Do You Have Difficulty Seeing? No [email or web address] Information n ot available 10/27/2020 What Is Your Level Of Caffeine Consumption? Moderate [email or web address] Information not available 11/22/2020 In The 14 Days Before Symptom Onset, Have You Had Close Contact With A Laboratory-confirm ed COVID-19 While That Case Was Ill? No [email or web address] Information n ot available 10/27/2020 In The 14 Days Before Symptom Onset, Have You Had Close Contact With A Person Who Is Under Investigation For COVID-19 While That Person Was Ill? No Information not available 10/27/2020 Have You Been To An Area Known To Be High Risk For COVID-19? No [email or web address] Information not available 10/27/2020 Are You Deaf Or Do You Have Serious Difficulty Hearing? No Information not available 10/27/2020 What Type Of Diet Are You Following? REGULAR Information n ot available 10/27/2020 Have You Ever Been Counseled For Unhealthy Alcohol Use? No [email or web address] Information not available 10/19/2021 Do You Use Your Seat Belt Or Car Seat Routinely? Yes [email or web address] Information not available 10/27/2020 Do You Have Smoke And Carbon Monoxide Detectors In Your Home? Yes [email or web address] Information not available 10/27/2020 Do You Use Sunscreen Routinely? Yes [email or web address] Information not available 10/27/2020 Has Tobacco Cessation Counseling Been Provided? No [email or web address] Information not available 10/19/2021 Do You Have Difficulty Walking Or Climbing Stairs? No [email or web address] Information not available 10/19/2021 Sex: Unknown Functional Status Question Answer Note LastModified by Organizat ion Details LastModified Time Do you use any illicit or recreational drugs? No Information not available 10/27/2020 Do you or have you ever used any other forms of tobacco or nicotine? No [email or web address] Information not available 10/19/2021 What is your level of alcohol consumption? Occasional [email or web address] Information not available 10/27/2020 Are you able to walk? YESWOREST Information not available 10/27/2020 Are you able to care for yourself? Yes [email or web address] Information not available 10/19/2021 Do you have difficulty dressing or bathing? No [email or web address] Information not available 10/19/2021 What is your exercise level? Occasional 1-2x's a week [email or web address] Information not available 07/05/2020 Mental Status Question Answer Note LastModified by Organization D etails LastModified Time Do you feel stressed (tense, restless, nervous, or anxious, or unable to sleep at night)? [id number] [email or web address] Information not available 10/27/2020 Family History Relationship Description Onset Age of this Age Resolved Age Notes LastModified by Organization Details LastModified Time Mother Cyst of ovary [email or web address] Not available 2024 09:12:33 Mother Mental disorder psychi atric diseas e [email or web address] Not available 12/18/2022 17:52:40 Mother Malignant tumor of cervix [email or web address] Not available 12/18 17:52:40 Maternal Grandfather Hypertensive disorder [email or web address] Not available 12/18 17:52:40 Medical History Condition Response Allergies (Food, seasonal, environmental ) N Other Y Breast Cancer N Drug/Latex Allergies/Reactions N Blood Transfusion N Dermatologic Disorders N Lung Disease N Defects or Inherited Disease N Breast Problem Y Gestational Diabetes N Hematologic disorders N Anesthesia Complications N History of STI Y Deep Vein Thrombosis N Polycystic ovary syndrome N Anxiety Disorder Y Autoimmune disease N Arthritis N Infertility N Polyps N Acid Reflux (GERD) Y History of abnormal pap Y Cancer N Stroke N Varicosities N Neurologic/Epilepsy N Endometriosis N High Cholesterol N Headaches N Fibromyalgia N Kidney Disease N Heart Problems N Kidney or Bladder Problems N Thyroid Problems N GI Problems N Eating Disorder [...] Response Abnormal Pap Yes Date of Last Mammogram 04/16/2024 Date of LMP 07/04/2024 STIs/STDs Y HPV Vaccine N Colposcopy 06/23/2024 11 Current Control Method Hysterectom y Date of Last Colonoscopy Sexually Active? Y Date of DEXA bone scan Date of Last Pap Smear 05/12/2024 Sexual Problems? N Desired Control Method Hysterectom y LMP Approximate Obstetrics History GPAL:G 2 P 1 0 1 1 Type Value Full Term 1 Spontaneous 1 Living 1 Total 2 Past Encounters Encounter ID Performer Location Encounter Start Date Encounter Closed Date Diagnosis/Indication Diagnosis SNOMED-CT Code Diagnosis ICD10 Code Diagnosis Note [id number] Shirin Watts [facility] [address] [address] 07/05/2020 15:21:33 07/05/2020 17:21:41 test positive 463667247 Z32.01 Risk factors addressed: Tobacco Cessation, Safe [...] Sequential Screen handout given and discussed with patient. ildbirth classes recommende d.New OB sheet given. Pt declined pap. Had one right about a year ago. No history of abnormal. If previous , counseling .Pt verbalizes that she understand s the importance of above instructio ns.All questions were answered. Patient reminded to have annual well woman examinatio n and address preventati ve healthcare . Anxiety 85683145 F41.9 Pt takes xanax only when she will be traveling (specifica lly flying). No planned trips during this . Discussed risks of xanax and discourage d use. Pt verbalized understand ing and will let us know if she has any travel plans so that we can plan ahead. Elderly primigravida 293 56190 O09.519 screening 2437 42069 Z36.89 Z77.011 Genetic in vestigation procedure 63749148 Z31.430 [id number] Edvin Curry MD [place] [address],[place] [address] 07/05/2020 15:23:07 07/05/2020 17:21:58 screening 667926012 Z36.82 [id number] MD Lalit Alicea [address],[place] [address] 08/02/2020 17:05:30 08/02/2020 18:03:26 Routine care 583066392 Z34.92 [id number] Shirin Watts [facility] [address],[place] [address] 08/30/2020 10:41:18 08/30/2020 17:32:28 Routine care 937696944 Z34.92 [id number] Edvin Curry MD [place] [address] [address] 08/30/2020 10:40:19 08/30/2020 17:37:09 screening for malformation 280341068 Z36.3 [id number] Linette Menjivar [facility] [address],[place] [address] 09/29/2020 15:48:16 10/02/2020 14:01:37 Routine care 769394529 Z34.92 [id number] Linette Menjivar [facility] [address],[place] [address] 10/27/2020 09:50:46 10/27/2020 12:52:59 [id number] Linette Menjivar [facility] [address],[place] [address] 11/08/2020 14:02:16 11/08/2020 15:15:36 Routine care 706932112 Z34.92 [id number] MD Lalit Alicea [address],[place] [address] 11/08/2020 14:02:01 11/08/2020 14:46:31 Advanced maternal age 276332520 O28.0 Z3A.29 [id number] Shirin Nguyenbernardshavon [facility] [address],[place] [address] 11/22/2020 09:35:32 11/22/2020 10:17:38 Routine care 723639318 Z34.92 [id number] Edvin Curry MD [place] [address],[place] [address] 11/22/2020 09:36:24 11/22/2020 11:04:10 Polyhydramnios 05203414 O40.3XX0 Z3A.31 [id number] [facility] [address] [address] 12/06/2020 09:21:38 12/06/2020 09:58:01 Routine care 709383029 Z34.92 [id number] [facility] [address],[place] [address] 12/20/2020 09:26:30 12/20/2020 10:59:17 Routine care 479535165 Z34.92 [id number] [facility] [address],[place] [address] 12/26/2020 11:27:38 12/26/2020 14:29:40 Routine care 640592224 Z34.92 [id number] Edvin Curry MD [place] [address],[place] [address] 12/26/2020 11:27:06 12/26/2020 12:01:42 Uterine size for dates discrepancy 139616723 O26.843 O40.3XX0 Z3A.36 [id number] [facility] [address],[place] [address] 01/05/2021 10:59:01 01/07/2021 14:14:58 Routine care 147956081 Z34.92 [id number] Edvin Curry MD [place] [address],[place] [address] 01/05/2021 16:23:39 01/05/2021 16:52:33 Polyhydramnios 18885459 O40.3XX0 Z3A.37 [id number] [facility] [address],[place] [address] 01/05/2021 16:24:00 01/08/2021 15:47:28 Vaginitis 19948487 N76.0 Routine an tenatal care 647956567 Z34.92 [id number] Edvin Curry MD [place] [address],[place] [address] 01/11/2021 10:54:53 01/11/2021 17:16:08 [id number] Edvin Curry MD [place] [address],[place] [address] 01/11/2021 11:57:32 01/11/2021 12:29:42 Polyhydramnios 92577904 O40.3XX0 Z3A.38 [id number] [facility] [address],[place] [address] 01/12/2021 14:25:27 01/12/2021 15:21:29 Routine care 049855963 Z34.92 [id number] [facility] [address],[place] [address] 02/16/2021 13:56:12 02/16/2021 15:06:38 care 939127082 Z39.2 [id number] [facility] [address],[place] [address] 08/08/2021 14:20:53 08/08/2021 15:57:09 Anxiety 09628886 F41.9 start lexapro 10mg daily. xanax prn #20, discussed se risks including potential addiction to prn meds, will f/u 6 wks or sooner if needed to ED if any suicidal thoughts Gynecologi c examination 79360948 Z01.419 [id number] Linette Menjivar [facility] [address],[place] [address] 09/19/2021 17:09:31 09/19/2021 17:46:36 Anxiety 20236939 F41.9 se risks benefits reviewed, if suicidal sxs to ED f/u colposcopy and med check [id number] Linette Menjivar [facility] [address],[place] [address] 10/19/2021 11:53:35 10/19/2021 13:23:11 Atypical squamous cells of undetermined significance on cervical Papanicolaou smear 803658033 R87.610 Human oly llomavirus deoxyribonucleic acid detected, high risk on cervical specimen 573080507 R87.810 [id number] [facility] [address],[place] [address] 12/18/2022 17:42:59 12/19/2022 17:03:55 Gynecologic examination 02551407 Z01.419 Z11.51 call with cycle and will place IUD/paraga rd [id number] Linette Menjivar [facility] [address],[place] [address] 02/12/2023 15:27:21 02/12/2023 17:53:42 Screening procedure 53520865 Z13.9 Atypical s quamous cells of undetermined significance on cervical Papanicolaou smear 355740903 R87.610 Human oly llomavirus deoxyribonucleic acid detected, high risk on cervical specimen 558690771 R87.810 [id number] Edvin Curry MD [place] [address],[place] [address] 02/21/2023 12:12:28 02/21/2023 13:02:49 Uncertain viability of 232302630 O36.80X9 Z3A.01 [id number] Edvin Curry MD [id number]|2025-01-05 10:26:00|2025-01-05 10:26:00|XMS_ITS|YUE CORDERO|External Medical Summaries|[id number]|" Clinical Summary Created on: January 05, 2025 RosaDarlin millanher Bruno : 1985 Sex: Female Author Organization [facility] Address [address] [place] [address] Care Team Providers Care Angular Developer Name Role Phone Unavailable Primary Care Provider Unavailabl e Source Comments [facility],non-owned Affiliates and Associated Physician Practices is amultiple site organization consisting of ambulatory clinics and hospital sitesin [place], [place], [place] and [place]. This disclosure is being madepursuant to the Care Everywhere program and may not contain all information available regarding this patient. 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 Gender Identity Not on file Sexual Orientation Not on file Plan of Treatment Health Maintenance Due Date Last Done Comments LIPID TESTING 1985 MAMMOGRAM 1985 PAP SMEAR 1985 HIV SCREENING 01/01/2000 HEPATITIS C SCREENING 12/27/2002 DTAP/TDAP/TD VACCINES (1 - Tdap) 01/01/2004 HEPATITIS B VACCINE (1 of 3 - 19+ 3-dose series) 01/01/2004 COVID-19 VACCINE (2023-2 5 season) 2024 DEPRESSION SCREENING 08/25/2024 INFLUENZA VACCINE (Season Ended) 2025 ZOSTER VACCINE (1 of 2) 2034 HIB VACCINE Aged Out No longer eligi ble based on patient's age to complete this topic HPV VACCINE Aged Out No longer eligi ble based on patient's age to complete this topic MENINGOCOCCAL (Group B) VACC INE SHARED DECISION-MAKING Aged Out No longer eligibl e based on patient's age to complete this topic MENINGOCOCCAL GROUPS A/C/Y/W VACCINE Aged Out No longer eligible b ased on patient's age to complete this topic PNEUMOCOCCAL VACCINE Aged Out No long er eligible based on patient's age to complete this topic Insurance [facility] SELF PAY NO INSURANCE Member Subscriber Plan / Payer (Ef fective for All Dates) Name:Thierno Tesfaye Member ID:Not on file Relation to Subscriber:Not on file Name:THIERNO TESFAYE Subscriber ID:Not on file (Home) Address: [address] [place] [id number] Payer ID:Not on file Group ID:Not on file Type:Self Pay Address: [place], [place] [facility] "
== END 2025-01-05 10:03 | disposition home or self-care (01) ==
LOC: ANHIMG 10:05
PROVIDERS: PCP Family Medicine; Visit Provider Advanced Practice Midwife
DX: Z12.31 Encounter for screening mammogram for malignant neoplasm of breast (principal); R92.8 Other abnormal and inconclusive findings on diagnostic imaging of breast
CPT/HCPCS: 77063; 77067

== ENCOUNTER 2025-01-24 12:25 | Outpatient (CLI) | payer OTHER, SELFPAY ==
--- NOTE | ~2025-01-24 | MMUS_ITS ---
MM DIAGNOSTIC KRISTINA LT W INOCENCIA AND ULTRASOUND BREAST LT LIMITED INDICATION: 39-year old female; callback from screening mammography to evaluate left breast upper out er quadrant mass. COMPARISON: 01/05/2025 and 04/16/2023 TECHNIQUE: Digital breast tomosynthesis True lateral and spot compression CC and MLO views of the LEF T breast were obtained. FINDINGS: The breasts are heterogeneously dense, which may obscure small masses. A circumscribed mass persists in area of concern. LEFT BREAST ULTRASOUND FINDINGS: Targeted evaluation of the area of concern was completed. There is a 1.2 x 1.3 x 1 cm hypoechoic circ umscribed mass at 1:00 location to cm from the nipple in the LEFT breast that correlates to the area of Mammographic finding. IMPRESSION: FINDINGS COMPATIBLE WITH PROBABLE FIBROADENOMA CORRELATES TO THE MAMMOGRAPHIC FINDING IN THE LEFT ANYA AST AT 1:00 LOCATION. THIS FINDING IS UNCHANGED DATING BACK TO THE MAMMOGRAM OF 04/16/2023 AND THEREFO RE CONSIDERED BENIGN. RECOMMENDATION: ANNUAL SCREENING BILATERAL MAMMOGRAPHY BI-RADS 2, BENIGN Reviewed, dictated and finalized at location B. IMPRESSION: FINDINGS COMPATIBLE WITH PROBABLE FIBROADENOMA CORRELATES TO THE MAMMOGRAPHIC F INDING IN THE LEFT BREAST AT 1:00 LOCATION. THIS FINDING IS UNCHANGED DATING BA CK TO THE MAMMOGRAM OF 04/16/2023 AND THEREFORE CONSIDERED BENIGN. RECOMMENDATION: ANNUAL SCREENING BILATERAL MAMMOGRAPHY BI-RADS 2, BENIGN
--- OUTSIDE RECORDS SUMMARY | 2025-01-24 12:29 | XMS_ITS | Encounter Summary ---
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 * Result Encounter Note - Rosy Trevino LPN - 01/13/2025 10:58 AM CDT LM x3 please send letter * Result Encounter Note - Rosy Trevino LPN - 01/11/2025 11:17 AM CDT LM, awaiting return call * Result Encounter Note - Rosy Trevino LPN - 01/10/2025 3:21 PM CDT LM, awaiting return call. Does pt have new pcp? We have not seen in a long time documented in this encounter Plan of Treatment Not on file documented as of this encounter Visit Diagnoses Not on filedocumented in this encounter Care Teams Bed Placement Coordinator Relationship Specialty Start Date End Date Lashaun Nolasco MD [address] [place] [address] PCP - General Family Medicine 02/05/19 documented as of this encounter
--- OUTSIDE RECORDS SUMMARY | 2025-01-24 12:29 | XMS_ITS | Referral Summary ---
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 Gender Identity Female 06/06/2020 9:13 AM CDT [...] 9:27 AM CDT Height 167.6 cm (5' 6) 12/15/2019 9:27 AM CDT Body Mass Index 33.25 12/15/2019 9:27 AM CDT Plan of Treatment Not on file Procedures Procedure Name Priority Date/Time Associated Diagnosis Comments MAMMOGRAPHY Routine 01/05/2025 2:02 PM CDT from Last 3 Months Results * HM MAMMOGRAPHY (01/05/2025 2:02 PM CDT) Historical Provider HEALTH MAINTENANCE Final Result from Last 3 Months Insurance [facility] Care Teams Anodizer Relationship Specialty Start Date End Date Lashaun Nolasco MD [facility] [address] [place] [id number] PCP - General Family Medicine 02/05/19
--- OUTSIDE RECORDS SUMMARY | 2025-01-24 12:29 | XMS_ITS | Clinical Summary ---
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
--- OUTSIDE RECORDS SUMMARY | 2025-01-24 12:29 | XMS_ITS | Data Portability ---
Author Organization [facility] Address [address] [place] [address] [address] [place] [address] Assessment Encounter Date Assessment Date Assessment LastModified by Organization Details LastModified Time 06/23/2024 06/23/2024 await pap results, plan consult for hysterectomy wants female md shook Not available 06/23/2024 11:38:12 Plan of Treatment Reminders Order Date Submit Date Provider Last Modified By Organization Details Last Modified Time Details Appointments None recorded. Lab test, urine 2023 024 [email or web address] 1 [place] [facility] [address], [place], [address], 11:06:57 Referral None recorded. Procedures None recorded. Surgeries None recorded. Imaging None recorded. Medication Orders clindamycin HCl 300 mg capsule 2023 024 [facility] [address] [place], [address], 11:37:24 clindamycin 1 % topical gel 2023 025 [facility] [address] [place], [address], 5 12:49:29 Patient TargetsNo targets recorded. Patient [...] t Abnor mal: Yes Resul guichog Lab: [facility] [address] [facility] [address] Tel: CULTU RE ----- ----- ----- --- [...] <=2 ug/mL Susce ptibl e Not Available [facility] (Lab) [address], [place], [address], 06/28/2024 15:10:45 06/23/20 24 06/30/2024 CERVI X/END OCERV IX cervical histology Negati ve normal Not Available [facility] ([facility]) [address] , [place], [address], 06/30/2024 12:00:13 06/23/20 24 06/30/2024 CERVI X/END OCERV IX endocervical brushing histology Negati ve normal Not Available [facility] ([facility]) [address] , [place], [address], 06/30/2024 12:00:13 06/23/20 24 06/30/2024 CERVI X/END [...] CERVI X UTERI (R87. 619) Not Available [facility] ([facility]) [address], [place], [address], 06/30/2024 12:00:13 06/23/20 24 06/23/2024 pregn maxi test, urine HCG negati ve Not Available [facility] [address], [place], [address], 06/23/2024 11:06:39 01/06/20 25 01/05/2025 MAMMO , scree shara, bilat eral No observ ation record ed. [address], [place], [address], 01/05/2025 19:11:46 01/07/20 25 01/05/2025 MAMMO , scree shara, digit al, bilat eral No observ ation record ed. [address] (Mammography) [address], [place], [address], 01/10/2025 18:04:28 Result Notes None recorded. Problems Name Problem SNOMED Code Status Onset Date Resolution Date Notes Provider Name and Address Organization Details Recorded Time Pregnanc y 34476563 Completed 201901/26/2021 Devi jose, [facility] 1 12:31:48 Cystic fibrosis 584332263 Completed Edvin Wasserman MD [address], [place], [address], [facility] 0 18:02:57 Carrier of cystic fibrosis gene mutation [id number] Completed FOB +CF also! MFM - appt 10-10-20 at 12:45 genetic counseli & u/s & genetic lab draw if pt wants - denied amnio Devi ham damon, [facility] 12:31:43 Corpus luteum cyst 291878469 Completed 201908/30/2020 - right RESOLVED Devi jose, [facility] 12:31:43 Notes:Genetic consult & u/s [facility] PT & FOB + CF 10-10-20 12:45. [facility] informed pt. ph# [phone] Problem Notes None recorded. Procedures Surgical History Date Name Laterality Status Provider Name and Address Organization Details Recorded Time 10/18/19 25 Total Hysterectomy completed Catia Lobo [facility] 11/30/2024 09:34:47 06/23/20 24 Colposcopy completed Linette Menjivar CNM [address], [place], [address], [facility] 06/23/2024 11:39:13 06/23/20 24 Colposcopy completed Catiashahzad Lobo [facility] 06/23/2024 11:04:39 06/23/20 24 Colposcopy completed Catiashahzad Lobo [facility] 06/23/2024 11:06:05 05/12/20 24 Date of Last Pap Smear completed Catia Lobo [facility] 06/23/2024 11:04:18 04/16/20 24 Date of Last Mammogram completed Catiashahzad Lobo [facility] 05/12/2024 11:13:58 02/13/20 23 Colposcopy completed Linette Menjivar CNM [address], [place], [address], [facility] 02/12/2023 16:57:19 02/13/20 23 Colposcopy completed Catia Lobo [facility] 02/12/2023 19:12:31 10/19/19 22 Colposcopy completed Linette Menjivar CNM [address], [place], [address], [facility] 10/19/2021 12:34:00 10/19/19 22 Colposcopy completed Catia Lobo [facility] 10/19/2021 12:08:11 08/25/19 10 excision of cyst of breast completed Lashaun Mirza [facility] 07/05/2020 15:56:09 08/25/19 06 procedure on back completed [facility] 11/08/2020 14:47:36 Imaging Results None recorded. Procedure Notes None recorded. Medical Equipment None Reported. Allergies Allergen ID Allergen Name Allergen Category Reaction Reaction Severity Criticality Documentation Date Start Date Code Code System Note Provider Name and Address Organization Details Recorded Time 10013 Compazine medicatio n dizziness Not available Not available 03/03/2023202254 6 RxNorm Clifton Jones [facility] 3 14:35:34 2694 acetamino phen / hydrocodo ne medicatio n Not available Not available Not available 07/05/2020 17628 2 RxNorm Lashaun Mirza [facility] 0 15:54:19 Medications Name Sig Start [...] Updated DateTime 11/01/2024 167.64 cm 36.6 kg/m2 926092.4 7 g 125 mm[Hg] 84 mm[Hg] RUT Carter [facility] 5 12:36:01 Date Recorded Body height Body mass index (BMI) Body weight Systolic blood pressure Diastolic blood pressure Provider Name and Address Organization Details Last Updated DateTime 11/30/2024 167.64 cm 37.6 kg/m2 785921.0 2 g 134 mm[Hg] 73 mm[Hg] Catia Lobo [facility] 5 09:33:40 Date Recorded Body height Body mass index (BMI) Body weight Systolic blood pressure Diastolic blood pressure Provider Name and Address Organization Details Last Updated DateTime 06/23/2024 167.64 cm 36 kg/m2 305476.1 g 152 mm[Hg] 86 mm[Hg] Catia Lobo [facility] 4 11:02:19 Date Recorded Body height Body mass index (BMI) Body weight Systolic blood pressure Diastolic blood pressure Provider Name and Address Organization Details Last Updated DateTime 07/21/2024 167.64 cm 35.8 kg/m2 166889.5 1 g 125 mm[Hg] 82 mm[Hg] Lisa Lunden [facility] 4 11:36:56 Social History Question Answer Notes LastModified by Organizat ion Details LastModified Time Tobacco Smoking Status Never [facility]oker [facility] 10/19/2021 11:53:21 If You Are , What Was Your Level Of Alcohol Consumption Prior To ? Occasional [email or web address] Information not available 10/19/2021 Are You Blind Or Do You Have Difficulty Seeing? No [email or web address] Information n ot available 10/27/2020 What Is Your Level Of Caffeine Consumption? Moderate [email or web address] Information not available 11/22/2020 In The 14 Days Before Symptom Onset, Have You Had Close Contact With A Laboratory-confirm ed COVID-19 While That Case Was Ill? No [email or web address] Information n ot available 10/27/2020 In The 14 Days Before Symptom Onset, Have You Had Close Contact With A Person Who Is Under Investigation For COVID-19 While That Person Was Ill? No [email or web address] Information not available 10/27/2020 Have You Been To An Area Known To Be High Risk For COVID-19? No [email or web address] Information not available 10/27/2020 Are You Deaf Or Do You Have Serious Difficulty Hearing? No Information not available 10/27/2020 What Type Of Diet Are You Following? REGULAR [email or web address] Information n ot available 10/27/2020 Have You Ever Been Counseled For Unhealthy Alcohol Use? No [email or web address] Information not available 10/19/2021 Do You Use Your Seat Belt Or Car Seat Routinely? Yes [email or web address] Information not available 10/27/2020 Do You Have Smoke And Carbon Monoxide Detectors In Your Home? Yes [email or web address] Information not available 10/27/2020 Do You Use Sunscreen Routinely? Yes [email or web address] Information not available 10/27/2020 Has Tobacco Cessation Counseling Been Provided? No [email or web address] Information not available 10/19/2021 Do You Have Difficulty Walking Or Climbing Stairs? No [email or web address] Information not available 10/19/2021 Sex: Unknown Functional Status Question Answer Note LastModified by Organizat ion Details LastModified Time Do you use any illicit or recreational drugs? No [email or web address] Information not available 10/27/2020 Do you or have you ever used any other forms of tobacco or nicotine? No [email or web address] Information not available 10/19/2021 What is your level of alcohol consumption? Occasional [email or web address] Information not available 10/27/2020 Are you able to walk? YESWOREST [email or web address] Information not available 10/27/2020 Are you able to care for yourself? Yes Information not available 10/19/2021 Do you have difficulty dressing or bathing? No Information not available 10/19/2021 What is your exercise level? Occasional 1-2x's a week [email or web address] Information not available 07/05/2020 Mental Status Question Answer Note LastModified by Organization D etails LastModified Time Do you feel stressed (tense, restless, nervous, or anxious, or unable to sleep at night)? [id number] [email or web address] Information not available 10/27/2020 Family History Relationship Description Onset Age of this Age Resolved Age Notes LastModified by Organization Details LastModified Time Mother Cyst of ovary Not available 2024 09:12:33 Mother Mental disorder psychi atric diseas e [email or web address] Not available 12/18/2022 17:52:40 Mother Malignant tumor of cervix [email or web address] Not available 12/18 17:52:40 Maternal Grandfather Hypertensive disorder [email or web address] Not available 12/18 17:52:40 Medical History Condition Response Other Y Blood Transfusion N Dermatologic Disorders N Gestational Diabetes N Anxiety Disorder Y Autoimmune disease N Arthritis N Polyps N Infertility N Acid Reflux (GERD) Y Cancer N Varicosities N Stroke N Neurologic/Epilepsy N Fibromyalgia N Headaches N Kidney Disease N Heart Problems N Kidney or Bladder Problems N Eating Disorder N Art (IVF or FET) N Hepatitis/Liver Disease N No Past Medical History N Urinary Tract Infection N Asthma N Trauma/Violence N Thrombophilias N Allergies (Food, seasonal, environmental ) N Breast Cancer N Drug/Latex Allergies/Reactions N Lung Disease N Defects or Inherited Disease N Breast Problem Y Hematologic disorders N Anesthesia Complications N History of STI Y Deep Vein Thrombosis N Polycystic ovary syndrome N History of abnormal pap Y Endometriosis N High Cholesterol N Thyroid Problems N GI Problems N Anemia Y Psychiatric Illness N Ovarian Cancer N Diabetes N Pulmonary (TB, Asthma) N Eczema N Abuse/Domestic Violence N Depression/ depression N Heart Disease N Pre-Eclampsia N Hypertension N Osteoporosis N Gynecological History Statement/Question Response Abnormal Pap [...] SNOMED-CT Code Diagnosis ICD10 Code Diagnosis Note [id number] [address] [address] 07/05/2020 15:21:33 07/05/2020 17:21:41 test positive 601163452 Z32.01 Risk factors addressed: Tobacco Cessation, Safe [...] and address preventati ve healthcare . Anxiety 32043504 F41.9 Pt takes xanax only when she will be traveling (specifica lly flying). No planned trips during this . Discussed risks of xanax and discourage d use. Pt verbalized understand ing and will let us know if she has any travel plans so that we can plan ahead. Elderly primigravida 293 09869 O09.519 screening 2437 19457 Z36.89 Z77.011 Genetic in vestigation procedure 17128749 Z31.430 [id number] Edvin Wasserman MD [facility] [address],[place] [address] 07/05/2020 15:23:07 07/05/2020 17:21:58 screening 989062338 Z36.82 [id number] Edvin Wasserman MD [facility] [address],[place] [address] 08/02/2020 17:05:30 08/02/2020 18:03:26 Routine care 191060458 Z34.92 [id number] Shirin Watts [facility] [address],[place] [address] 08/30/2020 10:41:18 08/30/2020 17:32:28 Routine care 489807089 Z34.92 [id number] Edvin Wasserman MD [place] [address],[place] [address] 08/30/2020 10:40:19 08/30/2020 17:37:09 screening for malformation 627561658 Z36.3 [id number] Linette Menjivar [facility] [address],[place] [address] 09/29/2020 15:48:16 10/02/2020 14:01:37 Routine care 738779685 Z34.92 [id number] Linette Menjivar [facility] [address],[place] [address] 10/27/2020 09:50:46 10/27/2020 12:52:59 [id number] Linette Menjivar [facility] [address],[place] [address] 11/08/2020 14:02:16 11/08/2020 15:15:36 Routine care 350632167 Z34.92 [id number] Edvin Wasserman MD [place] [address],[place] [address] 11/08/2020 14:02:01 11/08/2020 14:46:31 Advanced maternal age 072790971 O28.0 Z3A.29 [id number] Shirin Watts [facility] [address],[place] [address] 11/22/2020 09:35:32 11/22/2020 10:17:38 Routine care 992849806 Z34.92 [id number] Edvin Wasserman MD [place] [address],[place] [address] 11/22/2020 09:36:24 11/22/2020 11:04:10 Polyhydramnios 45757738 O40.3XX0 Z3A.31 [id number] Linette Menjivar [facility] [address],[place] [address] 12/06/2020 09:21:38 12/06/2020 09:58:01 Routine care 020057553 Z34.92 [id number] Linette Menjivar [facility] [address],[place] [address] 12/20/2020 09:26:30 12/20/2020 10:59:17 Routine care 115652879 Z34.92 [id number] Linette Menjivar [facility] [address],[place] [address] 12/26/2020 11:27:38 12/26/2020 14:29:40 Routine care 064429186 Z34.92 [id number] Edvin Wasserman MD [facility] [address],[place] [address] 12/26/2020 11:27:06 12/26/2020 12:01:42 Uterine size for dates discrepancy 418875576 O26.843 O40.3XX0 Z3A.36 [id number] [facility] [address],[place] [address] 01/05/2021 10:59:01 01/07/2021 14:14:58 Routine care 436179369 Z34.92 [id number] Edvin Wasserman MD [place] [address],[place] [address] 01/05/2021 16:23:39 01/05/2021 16:52:33 Polyhydramnios 56074146 O40.3XX0 Z3A.37 [id number] [facility] [address],[place] [address] 01/05/2021 16:24:00 01/08/2021 15:47:28 Vaginitis 72653423 N76.0 Routine an tenatal care 022884011 Z34.92 [id number] Edvin Wasserman MD [facility] [address],[place] [address] 01/11/2021 10:54:53 01/11/2021 17:16:08 [id number] Edvin Wasserman MD [facility] [address],[place] [address] 01/11/2021 11:57:32 01/11/2021 12:29:42 Polyhydramnios 41795200 O40.3XX0 Z3A.38 [id number] [facility] [address],[place] [address] 01/12/2021 14:25:27 01/12/2021 15:21:29 Routine care 501558069 Z34.92 [id number] Linette Menjivar [facility] [address],[place] [address] 02/16/2021 13:56:12 02/16/2021 15:06:38 care 657587915 Z39.2 [id number] Linette Menjivar [facility] [address],[place] [address] 08/08/2021 14:20:53 08/08/2021 15:57:09 Anxiety 86733919 F41.9 start lexapro 10mg daily. xanax prn #20, discussed se risks including potential addiction to prn meds, will f/u 6 wks or sooner if needed to ED if any suicidal thoughts Gynecologi c examination 27623859 Z01.419 [id number] Linette Menjivar [facility] [address],[place] [address] 09/19/2021 17:09:31 09/19/2021 17:46:36 Anxiety 47181463 F41.9 se risks benefits reviewed, if suicidal sxs to ED f/u colposcopy and med check [id number] Linette Menjivar [place] [address] [address] 10/19/2021 11:53:35 10/19/2021 13:23:11 Atypical squamous cells of undetermined significance on cervical Papanicolaou smear 304672805 R87.610 Human oly llomavirus deoxyribonucleic acid detected, high risk on cervical specimen 748130900 R87.810 [id number] Linette Menjivar [facility] [address],[place] [address] 12/18/2022 17:42:59 12/19/2022 17:03:55 Gynecologic examination 79632711 Z01.419 Z11.51 call with cycle and will place IUD/paraga rd [id number] Linette Menjivar [facility] [address],[place] [address] 02/12/2023 15:27:21 02/12/2023 17:53:42 Screening procedure 35479082 Z13.9 Atypical s quamous cells of undetermined significance on cervical Papanicolaou smear 935274913 R87.610 Human oly llomavirus deoxyribonucleic acid detected, high risk on cervical specimen 699811119 R87.810 [id number] Edvin Wasserman MD [facility] [address],[place] [address] 02/21/2023 12:12:28 02/21/2023 13:02:49 Uncertain viability of 176101489 O36.80X9 Z3A.01 [id number] Edvin Wasserman MD [facility] [address],[place] [address] 03/06/2023 12:25:56 03/06/2023 14:01:51 Threatened miscarriage 31595001 O20.0 Z3A.00 [id number] Linette Menjivar CNM [facility] [address],[place] [address] 03/19/2023 15:17:17 03/19/2023 16:15:02 Contraception care management 158120613 Z30.9 reviewed se risks and benefits, plan twirla once hcg negative, consult dr wasserman for salpingect seamus, consent signed Mixed anxi ety and depressive disorder 820974141 F41.8 call if desires medication , start counseling . list given to ED if any suicidal thoughts Mass of left breast 1224 574076 1969972 N63.20 mammogram and us ordered, precaution s reviewed [id number] Linette Menjivar CNM [facility] [address],[place] [address] 05/12/2024 10:51:21 05/12/2024 12:02:42 Gynecologic examination 26689573 Z01.419 Z11.51 call with cycle and will place IUD/paraga rd Anxiety 60594259 F41.9 se risks benefits reviewed, if suicidal sxs to ED f/u colposcopy and med check [id number] Linette Menjivar CNM [facility] [address],[place] [address] 06/23/2024 10:37:03 06/23/2024 11:44:45 Screening procedure 27467169 Z13.9 Hidradenit is suppurativa 88063094 L73.2 clindamyci n gel as prevention , finish oral meds first Human oly llomavirus deoxyribonucleic acid detected, high risk on cervical specimen 944799076 R87.810 [id number] JEREMIAS COX MD [facility] [address],[place] [address] 07/21/2024 11:23:48 07/21/2024 13:58:59 History of abnormal cervical Papanicolaou smear 009182742 Z87.42 - patient reports long hx of [...] state hysterecto my forms signed today Menorrhagia 047872691 N9 2.0 - patient reports long history of heavy bleeding only mildly controlled with OCPs- desires permanent surgical management as above [id number] JEREMIAS COX MD [facility] [address],[place] [address] 10/18/2024 08:42:29 10/18/2024 12:41:33 [id number] JEREMIAS COX MD [facility] [address],[place] [address] 11/01/2024 12:09:12 11/01/2024 13:57:55 Postoperative visit 031662949 Z48.89 - S/p TLH, BS on 10/18- pathology benign, no cervical dysplasia, although would recommend repeat pap smear at next [facility] due to hx of dysplasia- meeting post op milestones , pain well controlled - incisions c/d/i- continue pelvic rest- RTC 4 weeks for post op visit [id number] Linette Menjivar CNM [facility] [address] [address] 11/30/2024 09:12:28 11/30/2024 10:58:56 Postoperative visit 681590658 Z48.89 doing well! mammogram to be done next weekf/u [facility] Concerns Section Related Observation LastModified by Organization Detai ls LastModified Time None Recorded Concern Status LastModified by Organization Details LastModified Time None Recorded Advance Directives Directive None Recorded Payers Encounter Date Sequence Insurance Name Policy Number Policy Sherman Covered Member ID Sherman Member ID Guarantor Name 06/23/2024 1 [facility] (MEDICAID HMO) [id number] Evon Sorbie [id number] Evon Sorbie 07/21/2024 1 [employer] [facility] (MEDICAID HMO) [id number] Evon Sorbie [id number] Evon Sorbie 10/18/2024 1 [facility] (MEDICAID HMO) [id number] Evon Sorbie [id number] Evon Sorbie 11/01/2024 1 [employer] [facility] (MEDICAID HMO) [id number] Evon Sorbie [id number] Evon Sorbie 11/30/2024 1 [facility] (MEDICAID HMO) [id number] Evon Sorbie [id number] Evon Sorbie Notes Date Note Type Note Provider Name and Address Organization Details Recorded Time 06/23/2024 text/html hx hpv reviewed colposcopy consent signed UPT negativec/o frequent boils/cysts under arms/groin, discussed HS Linette Menjivar CNM [address], [place], [address], [facility] 06/23/2024 11:40:16 07/21/2024 text/html Patient presents [...] desire future childbearing. JEREMIAS COX MD [address], [place], [address], [facility] 07/21/2024 13:50:12 11/01/2024 text/html S/p ISIDRO, BS 10/18 . Patient doing well, no complaints. Pain well controlled with tylenol and ibuprofen. Tolerating general diet. Denies nausea or vomiting. No shortness of breath or chest pain. Ambulating. JEREMIAS COX MD [address], [place], [address], [facility] 11/01/2024 13:56:42 11/30/2024 text/html post op hysterectomy with bilateral salpingectomy, doing well! no complaintsok to resume exercise/intercour se, has mammogram scheduled, denies concerns Linette Menjivar CNM [address], [place], [address], [facility] 11/30/2024 10:54:37 OBGyn Episode Ob Episode Information Episode Created Date Number of Fetuses Patient Bloodtype Patient rh Status Prepregnancy Weight lbs Domestic Partner Domestic Partner Phone Father Name Casing Blower Status 08/02/20 20 1 B Positive 202 CLOSED Fetus Data First Name Last Name Admitted to NICU Weight (g) Sex Living Outcome Pediatric Complications Fetus ID Race Codes Race Delivery Type 3770.48 35 F true Full Term 6534 Vaginal Delivery Problems Problem Notes Per genetic counselor - noth ing further needed in for +CF. Recommends PKU after delivery, testing/alert system archive analyst of results and 25% chance of CF. Problem Name Start Date End Date Resolution Snomed Code Not e Corpus luteum cyst 07/05/2020 08/30/2020 [id number] - right RESOLVED Carrier of cystic fibrosis gene mutation [id number] FOB +CF also! M FM - appt [...] Weight in lbs Pre/Post Dialysis Refused Weight 202.847876881243 BP Diastolic BP Location Tested BP Systolic [...] Weight in lbs Pre/Post Dialysis Refused Weight 208.807954104276 BP Diastolic BP Location Tested BP Systolic BP Type 79 130 Fetus Heart Rate Present A 150 Fetus Movement A Yes Comments Having a girl Oralia. Doi ng well. Pt will have afp drawn today. FOB will have CF drawn today. Flowsheet Date 09/29/2020 Young Score Blood Edema Fundus Height Fundus Units Glucose Ketones Leukocytes Nitrite Labor Signs Protein Cervic Dilation Cervic Effacement Cervic Station 23 Type Weight in lbs Pre/Post Dialysis Refused Weight 218.599507900301 BP Diastolic BP Location Tested BP Systolic [...] Weight in lbs Pre/Post Dialysis Refused Weight 222.25433057555 BP Diastolic BP Location Tested BP Systolic [...] Weight in lbs Pre/Post Dialysis Refused Weight 225.154785267571 BP Diastolic BP Location Tested BP Systolic [...] Weight in lbs Pre/Post Dialysis Refused Weight 228.116087488092 BP Diastolic BP Location Tested BP Systolic [...] Weight in lbs Pre/Post Dialysis Refused Weight 230.330776919206 BP Diastolic BP Location Tested BP Systolic [...] Weight in lbs Pre/Post Dialysis Refused Weight 236.835591913790 BP Diastolic BP Location Tested BP Systolic [...] Weight in lbs Pre/Post Dialysis Refused Weight 234.105394812152 BP Diastolic BP Location Tested BP Systolic BP Type 81 120 Fetus Heart Rate Present Fetus Movement A Yes Comments PATIENT STATES HAVING SOME H EARTBUN.SP reviewed u/s with pt and wants pt to check BS QID r/t poly & larger HC. BS testing supplies called out to [facility] in [place]. bnDARRIUS hawthorne Poly at 27 cm, f/u blood sugars [...] Weight in lbs Pre/Post Dialysis Refused Weight 234.990816375189 BP Diastolic BP Location Tested BP Systolic [...] Weight in lbs Pre/Post Dialysis Refused Weight 235.042916050235 BP Diastolic BP Location Tested BP Systolic [...] Estim ated Date of Delivery true Thalassemia (Anguillan, Guatemalan, Mediterranean, Or Background): MCV < 80 false Neural Tube Defect (Meningomyelocele, Spina Bifi da, Or Anencephaly) false Congenital Heart Defect false Down Syndrome false Sunny-Sachs (eg, Voodoo, Cajun, Urdu-Finnish) f alse Trena Disease false Sickle Cell Disease Or Trait () false Hemophilia Or Other Blood Disorders false Muscular Dystrophy false Cystic Fibrosis false Shira's Chorea false Intellectual Disability/Autism false If Yes, [...] Domestic Partner Domestic Partner Phone Father Name Casing Blower Status 03/07/20 23 1 CLOSED Fetus Data First Name Last Name Admitted to NICU Weight (g) Sex Living Outcome Pediatric Complications Fetus ID Race Codes Race Delivery Type , Spontane ous [id number] Marshal Calculation Initial Marshal Date Initial Exam [...]
--- OUTSIDE RECORDS SUMMARY | 2025-01-24 12:29 | XMS_ITS | Clinical Summary ---
Author Organization [facility] Address [address] [place] [address] Care Team Providers Care Director Federal Name Role Phone Unavailable Primary Care Provider Unavailabl e Source Comments [facility],non-owned Affiliates and Associated Physician Practices is amultiple site organization consisting of ambulatory clinics and hospital sitesin [place], [place], [place]. This disclosure is being madepursuant to the Care Everywhere program and may not contain all information available regarding this patient. 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 Gender Identity Not on file Sexual Orientation Not on file Plan of Treatment Health Maintenance Due Date Last Done Comments LIPID TESTING 1984 MAMMOGRAM 1984 PAP SMEAR 1984 HIV SCREENING 01/01/2000 HEPATITIS C SCREENING 12/27/2002 DTAP/TDAP/TD VACCINES (1 - Tdap) 01/01/2004 HEPATITIS B VACCINE (1 of 3 - 19+ 3-dose series) 01/01/2004 COVID-19 VACCINE ( - 2023-2 5 season) 2024 DEPRESSION SCREENING 08/25/2024 INFLUENZA [...] patient's age to complete this topic Insurance [facility] SELF PAY NO INSURANCE Member Subscriber Plan / Payer (Ef fective for All Dates) Name:Evon Tesfaye Member ID:Not on file Relation to Subscriber:Not on file Name:EVON TESFAYE Subscriber ID:Not on file (Home) Address: [address] [place] [id number] Payer ID:Not on file Group ID:Not on file Type:Self Pay Address: [place], [place]
== END 2025-01-24 12:26 | disposition home or self-care (01) ==
PROVIDERS: PCP Family Medicine; Visit Provider Advanced Practice Midwife
DX: R92.8 Other abnormal and inconclusive findings on diagnostic imaging of breast (principal)
CPT/HCPCS: 76642; 77061; 77065; G0279